=== PATIENT | female | born 1980 | race Caucasian/White ===

== ENCOUNTER 2017-07-13 14:33 | Inpatient (IN) | payer OTHER ==
[2017-07-13 18:07] VITALS: BMI 26.6
--- NOTE | 2017-07-13 20:52 | HP ---
CIWA Score - CIWA Score Nausea/Vomitin-Mild Nausea/No Vomiting Muscle Tremors: 4-Moderate,w/Arms Extend Anxiety: 4-Mod. Anxious/Guarded Agitation: 4-Moderately Restless Paroxysmal Sweats: 1-Minimal Palms Moist Orientation: 0-Oriented Tacttile Disturbances: 0-None Auditory Disturbances: 0-None Visual Disturbances: 0-None Headache: 2-Mild CIWA-Ar Total Score: 16 Admission ROS BHS - HPI Chief Complaint: C/O WITHDRAWAL SX'S FROM BENZO'S. SEEKING DETOX TXMENT Allergies/Adverse Reactions: Allergies Allergy/AdvReac Type Severity Reaction Status Date / Time buspirone [From BuSpar] Allergy Severe Rash Verified 07/13/17 20:05 Penicillins Allergy Severe Rash Verified 07/13/17 20:05 History of Present Illness: 36 Y.O. FEMALE WITH LONG HX/O BENZO DEPENDENCE ADMITTED TO DETOX. CLIENT REPORTS LAST DETOX A LITTLE OVER A MONTH AGO BUT HAS SINCE RELAPSED. SHE WAS REFERRED BY HER MMTP PROGRAM. SHE IS ON METHADONE 100 MG DAILY AT THE [facility] METHADONE PROGRAM/ [facility] TODAY. REPORTS LONGEST CLEAN TIME 14 MONTHS. Exam Limitations: No Limitations - Ebola screening Have you traveled outside of the country in the last 21 days: No Have you had contact with anyone from an Ebola affected area: No Have you been sick,other than usual withdrawal symptoms: No Do you have a fever: No - Review of Systems Constitutional: Chills, Loss of Appetite, Malaise, Night Sweats, Unintentional Wgt. Loss EENT: reports: Nose Congestion Respiratory: reports: No Symptoms reported Cardiac: reports: No Symptoms Reported GI: reports: Poor Appetite, Poor Fluid Intake, Abdominal cramping : reports: No Symptoms Reported Musculoskeletal: reports: No Symptoms Reported Integumentary: reports: No Symptoms Reported Neuro: reports: No Symptoms reported Endocrine: reports: No Symptoms Reported Hematology: reports: No Symptoms Reported Psychiatric: reports: Anxious, Depressed Other Systems: Reviewed and Negative Patient History - Patient Medical History Hx Anemia: No Hx Asthma: No Hx Chronic Obstructive Pulmonary Disease (COPD): No Hx Cancer: No Hx Cardiac Disorders: No Hx Congestive Heart Failure: No Hx Hypertension: No Hx Hypercholesterolemia: No Hx Pacemaker: No HX Cerebrovascular Accident: No Hx Seizures: No Hx Dementia: No Hx Diabetes: No Hx Gastrointestinal Disorders: No Hx Liver Disease: No Hx Genitourinary Disorders: No Hx Sexually Transmitted Disorders: No Hx Renal Disease (ESRD): No Hx Thyroid Disease: No Hx Human Immunodeficiency Virus (HIV): No Hx Hepatitis C: Yes (TX'ED) Hx Depression: Yes Hx Suicide Attempt: No Hx Bipolar Disorder: No Hx Schizophrenia: No Other Medical History: ANXIETY - Patient Surgical History Past Surgical History: No Hx Neurologic Surgery: No Hx Cataract Extraction: No Hx Cardiac Surgery: No Hx Lung Surgery: No Hx Breast Surgery: No Hx Breast Biopsy: No Hx Abdominal Surgery: No Hx Appendectomy: No Hx Cholecystectomy: No Hx Genitourinary Surgery: No Hx Section: No Hx Orthopedic Surgery: No Anesthesia Reaction: No - PPD History Previous Implant?: Yes Documented Results: Negative w/o proof Implanted On Prior R Admission?: No PPD to be Administered?: Yes - Reproductive History Patient is a Female of Child Bearing Age (11 -55 yrs old): Yes Last Menstrual Period: 07/12/17 LMP comment: IRREG Patient : No (NEG UHCG) - Smoking Cessation Smoking history: Current every day smoker Have you smoked in the past 12 months: Yes Aproximately how many cigarettes per day: 20 Cigars Per Day: 0 Hx Chewing Tobacco Use: No Initiated information on smoking cessation: Yes 'Breaking Loose' booklet given: 07/13/17 - Substance & Tx. History Hx Alcohol Use: No Hx Substance Use: Yes Substance Use Type: Cocaine, Opiates, Prescribed (MMTP), Tranquilizers (BENZO) Hx Substance Use Treatment: Yes ([facility]) - Substances Abused Benzodiazepine (Klonopin) Route: Oral Frequency: Daily Amount used: 10mg Age of first use: 28 Date of Last Use: 07/13/17 Cocaine Route: Injection Frequency: Daily Amount used: 2 bags Age of first use: 18 Date of Last Use: 07/13/17 Family Disease History - Family Disease History Family Disease History: Diabetes: Grandparent (HTN), Mother (HTN), Other: Father (RECOVERING ADDICT) Admission Physical Exam BHS - Vital Signs Vital Signs: Vital Signs - 24 hr 07/13/17 18:04 Temperature 98.4 F Pulse Rate 79 Respiratory 18 Rate Blood Pressure 137/72 - Physical General Appearance: Yes: Disheveled, Mild Distress, Anxious HEENTM: Yes: EOMI, Normocephalic, Normal Voice, POONAM, Pharynx Normal, Nasal Congestion Respiratory: Yes: Chest Non-Tender, Lungs Clear, Normal Breath Sounds, No Respiratory Distress, No Accessory Muscle Use Neck: Yes: No masses,lesions,Nodules, Supple, Trachea in good position Breast: Yes: Breast Exam Deferred Cardiology: Yes: Regular Rhythm, Regular Rate, S1, S2 Abdominal: Yes: Normal Bowel Sounds, Non Tender, Flat, Soft Genitourinary: Yes: Within Normal Limits Back: Yes: Normal Inspection Musculoskeletal: Yes: full range of Motion, Gait Steady Extremities: Yes: Normal Range of Motion, Non-Tender Neurological: Yes: publishing director II-XII NML intact, Fully Oriented, Alert, Motor Strength 5/5 Integumentary: Yes: Normal Color, Dry, Warm Lymphatic: Yes: Within Normal Limits - Diagnostic (1) Sedative, hypnotic or anxiolytic dependence with withdrawal, uncomplicated Current Visit: Yes Status: Chronic (2) Cocaine dependence, uncomplicated Current Visit: Yes Status: Chronic (3) Methadone maintenance therapy patient Current Visit: Yes Status: Chronic (4) Nicotine dependence Current Visit: Yes Status: Chronic Qualifiers: Nicotine product type: cigarettes Substance use status: uncomplicated Qualified Code(s): F17.210 - Nicotine dependence, cigarettes, uncomplicated Cleared for Admission [facility] - Detox or Rehab [facility] Level of Care: Medically Managed Detox Regimen/Protocol: Valium Claeared for Rehab Admission: No [facility] Breath Alcohol Content Breath Alcohol Content: 0 Urine Pregancy Test - Result Urine Test Results: Negative- NO Line Present Urine Drug Screen - Results Drug Screen Negative: No Urine Drug Screen Results: MEÑO-Cocaine, OPI-Opiates, BZO-Benzodiazepines, MTD- Methadone
[2017-07-13] MEDS ORDERED: diazePAM 5 MG TABLET PO ONE (21:03)
[2017-07-13] MEDS ORDERED: MAGNESIUM CITRATE 300 ML BOTTLE PO PRN (21:04)
[2017-07-13] MEDS ORDERED: ACETAMINOPHEN 325 MG TABLET (FP) PO PRN (21:04)
[2017-07-13] MEDS ORDERED: LOPERAMIDE HCL 2 MG CAPSULE PO PRN (21:04)
[2017-07-13] MEDS ORDERED: MAG HYDROX/AL HYDROX/SIMETH 30 ML UNIT-DOSE CUP PO PRN (21:04)
[2017-07-13] MEDS ORDERED: guaiFENesin/D-METHORPHAN HB 10 ML UNIT-DOSE CUPS PO PRN (21:04)
[2017-07-13] MEDS ORDERED: MENTHOL/PHENOL 1 EACH UD MM PRN (21:04)
[2017-07-13] MEDS ORDERED: MAGNESIUM HYDROX 2400MG/30ML ORAL SUSPENSION 30 ML CUP PO PRN (21:04)
[2017-07-13] MEDS ORDERED: P-EPHED 60MG/TRIPROLIDI 2.5MG TABLET PO PRN (21:04)
[2017-07-13] MEDS ORDERED: diphenhydrAMINE HCL 25 MG CAPSULE (FP) PO ONE (21:05)
[2017-07-13] MEDS: THIAMINE HCL 100 MG TABLET (FP) PO SCH (22:39)
[2017-07-13] MEDS: diazePAM 5 MG TABLET PO SCH (23:04)
[2017-07-14 00:55] LABS: URINE APPEARANCE SLCLOUDY; URINE BILIRUBIN NEGATIVE (NEGATIVE); URINE BLOOD 1+ (NEGATIVE); URINE COLOR YELLOW; URINE GLUCOSE (UA) NEGATIVE (NEGATIVE); URINE KETONE NEGATIVE (NEGATIVE); URINE LEUK ESTERASE TRACE (NEGATIVE); URINE NITRITE NEGATIVE (NEGATIVE); URINE PROTEIN NEGATIVE (NEGATIVE)
[2017-07-14 01:00] LABS: EPI CELLS FEW /HPF (FEW); URINE MUCUS RARE
[2017-07-14] MEDS: diazePAM 5 MG TABLET PO SCH ×3 (05:50→22:52)
[2017-07-14] MEDS ORDERED: METHADONE HCL 10 MG TABLET PO SCH ×2 (10:15→10:55)
[2017-07-14] MEDS: PRENATAL VITAMINS W/ FOLIC ACID TABLET (FP) PO SCH (10:49)
[2017-07-14] MEDS: diazePAM 5 MG TABLET PO PRN ×3 (10:50→19:00)
[2017-07-14] MEDS ORDERED: METHADONE 80 MG, METHADONE 20 MG PO ONE (11:15)
[2017-07-14] MEDS ORDERED: METHADONE HCL 10 MG TABLET ONE (11:19)
[2017-07-14] MEDS ORDERED: METHADONE HCL 40 MG DISPERSABLE TABLET ONE (11:19)
[2017-07-14] MEDS: NICOTINE POLACRILEX 2 MG GUM BUC PRN ×2 (13:18→19:00)
[2017-07-14] MEDS: NICOTINE 21 MG/24 HOURS TOPICAL PATCH TD SCH (13:33)
--- NOTE | 2017-07-14 16:00 | EKG ---
Test Reason : Blood Pressure : / mmHG Vent. Rate : 054 BPM Atrial Rate : 054 BPM P-R Int : 110 ms QRS Dur : 096 ms QT Int : 466 ms P-R-T Axes : 031 028 022 degrees QTc Int : 441 ms SINUS BRADYCARDIA WITH SHORT WY OTHERWISE NORMAL ECG NO PREVIOUS ECGS AVAILABLE Confirmed by DAIANA ORELLANA, HAROON ([id number]) on 07/14/2017 3:59:34 PM Referred By: Confirmed By:HAROON AHMADI MD
--- NOTE | 2017-07-14 18:57 | CONSULT ---
[facility] Psychiatric Consult - Data Date of interview: 07/14/17 Admission source: [facility] Identifying data: Admission to [facility] for this 36 y/o female seeking detox treatment on for opiod,cocaine and benzodiazepine dependence.Patient is single without children,homeless,unemployed and supported on food stamps. Substance Abuse History: Confirmed by patient in this session.See current [facility] report for details. Smoking history: Current every day smoker. Have you smoked in the past 12 months: Yes. Aproximately how many cigarettes per day: 20. Cigars Per Day: 0. Hx Chewing Tobacco Use: No. Initiated information on smoking cessation: Yes. 'Breaking Loose' booklet given: 07/13/17. - Substance & Tx. History. Hx Alcohol Use: No. Hx Substance Use: Yes. Substance Use Type : Cocaine, Opiates, Prescribed (MMTP), Tranquilizers (BENZO). Hx Substance Use Treatment: Yes ([facility]). - Substances Abused. Benzodiazepine ( Klonopin). Route: Oral. Frequency: Daily. Amount used: 10mg. Age of first use: 28. Date of Last Use: 07/13/17. Cocaine. Route: Injection. Frequency : Daily. Amount used: 2 bags. Age of first use: 18. Date of Last Use: Medical History: Hepatitis C. Psychiatric History: No reported history of psychiatric hospitalizations.Diagnosed with MDD and Anxiety Disorder.No regular OPD follow up (patient gets scripts at discharge from various detox/ rehab facilities) .Prescribed zoloft 100 mg/day + benadryl for insomnia.Ms Antoni bustamante history of suicide attempts.Currently on methadone maintenance (100 mg/day) at the [facility]. Physical/Sexual Abuse/Trauma History: Patient denies. Additional Comment: Urine Drug Screen Results: MEÑO-Cocaine, OPI-Opiates, BZO- Benzodiazepines, MTD-Methadone.Noted. Mental Status Exam - Mental Status Exam Alert and Oriented to: Time, Place, Person Cognitive Function: Good Patient Appearance: Well Groomed Mood: Nervous, Anxious, Hopeful Affect: Mood Congruent Patient Behavior: Fatigued, Appropriate, Cooperative Speech Pattern: Clear, Appropriate Voice Loudness: Normal Thought Process: Intact, Goal Oriented Thought Disorder: Not Present Hallucinations: Denies Suicidal Ideation: Denies Homicidal Ideation: Denies Insight/Judgement: Poor Sleep: Poorly, Difficulty falling asleep Appetite: Good Muscle strength/Tone: Normal Gait/Station: Normal Psychiatric Findings - Problem List ([place] 1, 2,3) (1) Opioid dependence on agonist therapy Current Visit: Yes Status: Acute (2) Cocaine dependence, uncomplicated Current Visit: Yes Status: Acute (3) Sedative, hypnotic or anxiolytic dependence with withdrawal, uncomplicated Current Visit: Yes Status: Acute (4) Nicotine dependence Current Visit: Yes Status: Acute Qualifiers: Nicotine product type: cigarettes Substance use status: uncomplicated Qualified Code(s): F17.210 - Nicotine dependence, cigarettes, uncomplicated (5) Substance induced mood disorder Current Visit: Yes Status: Acute (6) Insomnia Current Visit: Yes Status: Acute - Initial Treatment Plan Initial Treatment Plan: Psychoeducation.Sleep hygiene.Detoxification in progress.Medications : zoloft 100 mg po daily + ambien 5 mg po hs.Side effects/ benefits of both drugs are discussed with patient.Ms Corrales consented (verbally ) to this careplan.Observation.
--- NOTE | 2017-07-14 19:53 | PN ---
S CIWA - CIWA Score Nausea/Vomitin Muscle Tremors: 3 Anxiety: 3 Agitation: 3 Paroxysmal Sweats: 1-Minimal Palms Moist Orientation: 0-Oriented Tacttile Disturbances: 0-None Auditory Disturbances: 0-None Visual Disturbances: 0-None Headache: 0-None Present CIWA-Ar Total Score: 13 S Progress Note (SOAP) Subjective: Shakes nausea Objective: A & O x 3, Ambulating steadily on unit Anxious Vital Signs Temperature 98.1 F 07/14/17 18:40 Pulse Rate 59 L 07/14/17 18:40 Respiratory Rate 17 07/14/17 18:40 Blood Pressure 113/61 07/14/17 18:40 O2 Sat by Pulse Oximetry (%) Laboratory Last Values Urine Color Yellow 07/13/17 22:59 Urine Appearance Slcloudy 07/13/17 22:59 Urine pH 5.0 (5.0-8.0) 07/13/17 22:59 Ur Specific [place] 1.018 (1.001-1.035) 07/13/17 22:59 Urine Protein Negative (NEGATIVE) 07/13/17 22:59 Urine Glucose (UA) Negative (NEGATIVE) 07/13/17 22:59 Urine Ketones Negative (NEGATIVE) 07/13/17 22:59 Urine Blood 1+ (NEGATIVE) H 07/13/17 22:59 Urine Nitrite Negative (NEGATIVE) 07/13/17 22:59 Urine Bilirubin Negative (NEGATIVE) 07/13/17 22:59 Urine Urobilinogen 2.0 mg/dL (0.2-1.0) H 07/13/17 22:59 Ur Leukocyte Esterase Trace (NEGATIVE) 07/13/17 22:59 Urine WBC (Auto) 1 /hpf (3-5) 07/13/17 22:59 Urine RBC (Auto) 6 /hpf (0-3) 07/13/17 22:59 Ur Epithelial Cells Few /HPF (FEW) 07/13/17 22:59 Urine Mucus Rare 07/13/17 22:59 labs noted Assessment: 07/14/17 19:52 withdrawal sx Plan: continue detox
[2017-07-14] MEDS: THIAMINE HCL 100 MG TABLET (FP) PO SCH (22:52)
[2017-07-14] MEDS: ZOLPIDEM TARTRATE 5 MG TABLET PO PRN (22:52)
[2017-07-15] MEDS ORDERED: METHADONE HCL 10 MG TABLET ONE (05:25)
[2017-07-15] MEDS ORDERED: METHADONE HCL 40 MG DISPERSABLE TABLET ONE (05:25)
[2017-07-15] MEDS: METHADONE 80 MG, METHADONE 20 MG PO SCH (06:24)
[2017-07-15] MEDS: diazePAM 5 MG TABLET PO PRN ×3 (07:57→16:54)
[2017-07-15] MEDS: NICOTINE POLACRILEX 2 MG GUM BUC PRN ×3 (07:58→15:04)
[2017-07-15 10:17] LABS: HEMOGLOBIN 12.2 GM/dL (10.7-15.3); MCH 26.6 pg (25.7-33.7); MEAN CELL VOLUME 82.9 fl (80-96); MEAN PLT VOLUME 8.8 fl (7.5-11.1); PLATELET COUNT 163 K/MM3 (134-434); RBC 4.58 M/mm3 (3.60-5.2); RDW 15.4 % (11.6-15.6); WHITE BLOOD COUNT 5.2 K/mm3 (4.0-10.0)
[2017-07-15 10:22] LABS: ALBUMIN 3.4 g/dl (3.4-5.0); ANION GAP 4 (8-16); BLOOD UREA NITROGEN 9 mg/dL (7-18); CALCIUM 8.4 mg/dL (8.5-10.1); CHLORIDE 105 mmol/L (98-107); CO2 31 mmol/L (21-32); GLUCOSE,RANDOM 85 mg/dL (74-106); POTASSIUM 4.3 mmol/L (3.5-5.1); SGOT/AST 21 U/L (15-37); SGPT/ALT 23 U/L (12-78); SODIUM 140 mmol/L (136-145)
[2017-07-15 10:25] LABS: ALK PHOS 71 U/L (45-117); BILIRUBIN,TOTAL 0.5 mg/dL (0.2-1.0); TOT PROT 6.3 g/dl (6.4-8.2)
[2017-07-15] MEDS: PRENATAL VITAMINS W/ FOLIC ACID TABLET (FP) PO SCH (10:45)
[2017-07-15] MEDS: diazePAM 5 MG TABLET PO SCH ×2 (10:45→22:46)
[2017-07-15] MEDS: SERTRALINE HCL 50 MG TABLET (FP) PO SCH (10:45)
[2017-07-15] MEDS: NICOTINE 21 MG/24 HOURS TOPICAL PATCH TD SCH (10:46)
--- NOTE | 2017-07-15 11:58 | PN ---
[facility] CIWA - CIWA Score Nausea/Vomitin-No Nausea/No Vomiting Muscle Tremors: 3 Anxiety: 3 Agitation: 3 Paroxysmal Sweats: 1-Minimal Palms Moist Orientation: 0-Oriented Tacttile Disturbances: 0-None Auditory Disturbances: 0-None Visual Disturbances: 0-None Headache: 0-None Present CIWA-Ar Total Score: 10 S Progress Note (SOAP) Subjective: sweat tremor anxiety Objective: 07/15/17 11:57 Vital Signs Temperature 98.1 F 07/15/17 10:21 Pulse Rate 49 L 07/15/17 10:21 Respiratory Rate 20 07/15/17 10:21 Blood Pressure 119/68 07/15/17 10:21 O2 Sat by Pulse Oximetry (%) Laboratory Last Values WBC 5.2 K/mm3 (4.0-10.0) 07/15/17 08:00 RBC 4.58 M/mm3 (3.60-5.2) 07/15/17 08:00 Hgb 12.2 GM/dL (10.7-15.3) 07/15/17 08:00 Hct 38.0 % (32.4-45.2) 07/15/17 08:00 MCV 82.9 fl (80-96) 07/15/17 08:00 MCH 26.6 pg (25.7-33.7) 07/15/17 08:00 MCHC 32.0 g/dl (32.0-36.0) 07/15/17 08:00 RDW 15.4 % (11.6-15.6) 07/15/17 08:00 Plt Count 163 K/MM3 (134-434) 07/15/17 08:00 MPV 8.8 fl (7.5-11.1) 07/15/17 08:00 Sodium 140 mmol/L (136-145) 07/15/17 08:00 Potassium 4.3 mmol/L (3.5-5.1) 07/15/17 08:00 Chloride 105 mmol/L (98-107) 07/15/17 08:00 Carbon Dioxide 31 mmol/L (21-32) 07/15/17 08:00 Anion Gap 4 (8-16) L 07/15/17 08:00 BUN 9 mg/dL (7-18) 07/15/17 08:00 Creatinine 1.0 mg/dL (0.55-1.02) 07/15/17 08:00 Creat Clearance w eGFR > 60 (>60) 07/15/17 08:00 Random Glucose 85 mg/dL (74-106) 07/15/17 08:00 Calcium 8.4 mg/dL (8.5-10.1) L 07/15/17 08:00 Total Bilirubin 0.5 mg/dL (0.2-1.0) 07/15/17 08:00 AST 21 U/L (15-37) 07/15/17 08:00 ALT 23 U/L (12-78) 07/15/17 08:00 Alkaline Phosphatase 71 U/L (45-117) 07/15/17 08:00 Total Protein 6.3 g/dl (6.4-8.2) L 07/15/17 08:00 Albumin 3.4 g/dl (3.4-5.0) 07/15/17 08:00 Urine Color Yellow 07/13/17 22:59 Urine Appearance Slcloudy 07/13/17 22:59 Urine pH 5.0 (5.0-8.0) 07/13/17 22:59 Ur Specific [place] 1.018 (1.001-1.035) 07/13/17 22:59 Urine Protein Negative (NEGATIVE) 07/13/17 22:59 Urine Glucose (UA) Negative (NEGATIVE) 07/13/17 22:59 Urine Ketones Negative (NEGATIVE) 07/13/17 22:59 Urine Blood 1+ (NEGATIVE) H 07/13/17 22:59 Urine Nitrite Negative (NEGATIVE) 07/13/17 22:59 Urine Bilirubin Negative (NEGATIVE) 07/13/17 22:59 Urine Urobilinogen 2.0 mg/dL (0.2-1.0) H 07/13/17 22:59 Ur Leukocyte Esterase Trace (NEGATIVE) 07/13/17 22:59 Urine WBC (Auto) 1 /hpf (3-5) 07/13/17 22:59 Urine RBC (Auto) 6 /hpf (0-3) 07/13/17 22:59 Ur Epithelial Cells Few /HPF (FEW) 07/13/17 22:59 Urine Mucus Rare 07/13/17 22:59 lab noted Assessment: 07/15/17 11:57 withdrawal sx Plan: continue detox
[2017-07-15] MEDS: IBUPROFEN 400 MG TABLET (FP) PO PRN (12:54)
[2017-07-15] MEDS ORDERED: SENNOSIDES 8.6MG TABLET (FP) PO SCH (13:00)
[2017-07-15] MEDS ORDERED: BISACODYL 5 MG TABLET.DR (FP) PO SCH (22:00)
[2017-07-15] MEDS: ZOLPIDEM TARTRATE 5 MG TABLET PO PRN (22:45)
[2017-07-15] MEDS: THIAMINE HCL 100 MG TABLET (FP) PO SCH (22:45)
[2017-07-16] MEDS ORDERED: diphenhydrAMINE HCL 25 MG CAPSULE (FP) PO ONE (01:08)
[2017-07-16] MEDS: diazePAM 5 MG TABLET PO PRN ×4 (04:16→17:56)
[2017-07-16] MEDS ORDERED: METHADONE HCL 40 MG DISPERSABLE TABLET ONE (04:46)
[2017-07-16] MEDS ORDERED: METHADONE HCL 10 MG TABLET ONE (04:47)
[2017-07-16] MEDS: METHADONE 80 MG, METHADONE 20 MG PO SCH (05:30)
[2017-07-16] MEDS: NICOTINE POLACRILEX 2 MG GUM BUC PRN ×4 (08:40→17:56)
--- NOTE | 2017-07-16 08:54 | PN ---
BHS Progress Note (SOAP) Subjective: mild alcohol withdrawal sx mild sweat less anxiousness no tremor Objective: 07/16/17 08:54 Vital Signs Temperature 97.7 F 07/16/17 06:38 Pulse Rate 50 L 07/16/17 06:38 Respiratory Rate 18 02 06:38 Blood Pressure 116/76 07/16/17 06:38 O2 Sat by Pulse Oximetry (%) Laboratory Last Values WBC 5.2 K/mm3 (4.0-10.0) 07/15/17 08:00 RBC 4.58 M/mm3 (3.60-5.2) 07/15/17 08:00 Hgb 12.2 GM/dL (10.7-15.3) 07/15/17 08:00 Hct 38.0 % (32.4-45.2) 07/15/17 08:00 MCV 82.9 fl (80-96) 07/15/17 08:00 MCH 26.6 pg (25.7-33.7) 07/15/17 08:00 MCHC 32.0 g/dl (32.0-36.0) 07/15/17 08:00 RDW 15.4 % (11.6-15.6) 07/15/17 08:00 Plt Count 163 K/MM3 (134-434) 07/15/17 08:00 MPV 8.8 fl (7.5-11.1) 07/15/17 08:00 Sodium 140 mmol/L (136-145) 07/15/17 08:00 Potassium 4.3 mmol/L (3.5-5.1) 07/15/17 08:00 Chloride 105 mmol/L (98-107) 07/15/17 08:00 Carbon Dioxide 31 mmol/L (21-32) 07/15/17 08:00 Anion Gap 4 (8-16) L 07/15/17 08:00 BUN 9 mg/dL (7-18) 07/15/17 08:00 Creatinine 1.0 mg/dL (0.55-1.02) 07/15/17 08:00 Creat Clearance w eGFR > 60 (>60) 07/15/17 08:00 Random Glucose 85 mg/dL (74-106) 07/15/17 08:00 Calcium 8.4 mg/dL (8.5-10.1) L 07/15/17 08:00 Total Bilirubin 0.5 mg/dL (0.2-1.0) 07/15/17 08:00 AST 21 U/L (15-37) 07/15/17 08:00 ALT 23 U/L (12-78) 07/15/17 08:00 Alkaline Phosphatase 71 U/L (45-117) 07/15/17 08:00 Total Protein 6.3 g/dl (6.4-8.2) L 07/15/17 08:00 Albumin 3.4 g/dl (3.4-5.0) 07/15/17 08:00 Urine Color Yellow 07/13/17 22:59 Urine Appearance Slcloudy 07/13/17 22:59 Urine pH 5.0 (5.0-8.0) 07/13/17 22:59 Ur Specific [place] 1.018 (1.001-1.035) 07/13/17 22:59 Urine Protein Negative (NEGATIVE) 07/13/17 22:59 Urine Glucose (UA) Negative (NEGATIVE) 07/13/17 22:59 Urine Ketones Negative (NEGATIVE) 07/13/17 22:59 Urine Blood 1+ (NEGATIVE) H 07/13/17 22:59 Urine Nitrite Negative (NEGATIVE) 07/13/17 22:59 Urine Bilirubin Negative (NEGATIVE) 07/13/17 22:59 Urine Urobilinogen 2.0 mg/dL (0.2-1.0) H 07/13/17 22:59 Ur Leukocyte Esterase Trace (NEGATIVE) 07/13/17 22:59 Urine WBC (Auto) 1 /hpf (3-5) 07/13/17 22:59 Urine RBC (Auto) 6 /hpf (0-3) 07/13/17 22:59 Ur Epithelial Cells Few /HPF (FEW) 07/13/17 22:59 Urine Mucus Rare 07/13/17 22:59 RPR Titer Nonreactive (NONREACTIVE) 07/15/17 08:00 lab noted Assessment: 07/16/17 08:57 mild withdrawal sx Plan: medically supervised detox
[2017-07-16] MEDS: SERTRALINE HCL 50 MG TABLET (FP) PO SCH (10:57)
[2017-07-16] MEDS: PRENATAL VITAMINS W/ FOLIC ACID TABLET (FP) PO SCH (10:57)
[2017-07-16] MEDS: diazePAM 5 MG TABLET PO SCH ×2 (10:57→22:28)
[2017-07-16] MEDS: NICOTINE 21 MG/24 HOURS TOPICAL PATCH TD SCH (10:57)
[2017-07-16] MEDS: THIAMINE HCL 100 MG TABLET (FP) PO SCH (22:28)
[2017-07-16] MEDS: ZOLPIDEM TARTRATE 5 MG TABLET PO PRN (22:28)
[2017-07-17] MEDS ORDERED: METHADONE HCL 40 MG DISPERSABLE TABLET ONE (03:54)
[2017-07-17] MEDS ORDERED: METHADONE HCL 10 MG TABLET ONE (03:54)
[2017-07-17] MEDS: METHADONE 80 MG, METHADONE 20 MG PO SCH (06:06)
[2017-07-17] MEDS: NICOTINE POLACRILEX 2 MG GUM BUC PRN ×3 (06:13→12:36)
[2017-07-17] MEDS: IBUPROFEN 400 MG TABLET (FP) PO PRN (06:13)
--- NOTE | 2017-07-17 08:43 | DS ---
[facility] Detox Discharge Summary Admission Date: 07/13/17 Discharge Date: 07/17/17 - History Present History: Sedative Dependence - Physical Exam Results Vital Signs: Vital Signs Temperature 97.3 F L 07/17/17 06:33 Pulse Rate 57 L 07/17/17 06:33 Respiratory Rate 16 07/17/17 06:33 Blood Pressure 136/87 07/17/17 06:33 O2 Sat by Pulse Oximetry (%) Pertinent Admission Physical Exam Findings: withdrawal sx Vital Signs Temperature 97.3 F L 07/17/17 06:33 Pulse Rate 57 L 07/17/17 06:33 Respiratory Rate 16 07/17/17 06:33 Blood Pressure 136/87 07/17/17 06:33 O2 Sat by Pulse Oximetry (%) Laboratory Last Values WBC 5.2 K/mm3 (4.0-10.0) 07/15/17 08:00 RBC 4.58 M/mm3 (3.60-5.2) 07/15/17 08:00 Hgb 12.2 GM/dL (10.7-15.3) 07/15/17 08:00 Hct 38.0 % (32.4-45.2) 07/15/17 08:00 MCV 82.9 fl (80-96) 07/15/17 08:00 MCH 26.6 pg (25.7-33.7) 07/15/17 08:00 MCHC 32.0 g/dl (32.0-36.0) 07/15/17 08:00 RDW 15.4 % (11.6-15.6) 07/15/17 08:00 Plt Count 163 K/MM3 (134-434) 07/15/17 08:00 MPV 8.8 fl (7.5-11.1) 07/15/17 08:00 Sodium 140 mmol/L (136-145) 07/15/17 08:00 Potassium 4.3 mmol/L (3.5-5.1) 07/15/17 08:00 Chloride 105 mmol/L (98-107) 07/15/17 08:00 Carbon Dioxide 31 mmol/L (21-32) 07/15/17 08:00 Anion Gap 4 (8-16) L 07/15/17 08:00 BUN 9 mg/dL (7-18) 07/15/17 08:00 Creatinine 1.0 mg/dL (0.55-1.02) 07/15/17 08:00 Creat Clearance w eGFR > 60 (>60) 07/15/17 08:00 Random Glucose 85 mg/dL (74-106) 07/15/17 08:00 Calcium 8.4 mg/dL (8.5-10.1) L 07/15/17 08:00 Total Bilirubin 0.5 mg/dL (0.2-1.0) 07/15/17 08:00 AST 21 U/L (15-37) 07/15/17 08:00 ALT 23 U/L (12-78) 07/15/17 08:00 Alkaline Phosphatase 71 U/L (45-117) 07/15/17 08:00 Total Protein 6.3 g/dl (6.4-8.2) L 07/15/17 08:00 Albumin 3.4 g/dl (3.4-5.0) 07/15/17 08:00 Urine Color Yellow 07/13/17 22:59 Urine Appearance Slcloudy 07/13/17 22:59 Urine pH 5.0 (5.0-8.0) 07/13/17 22:59 Ur Specific [place] 1.018 (1.001-1.035) 07/13/17 22:59 Urine Protein Negative (NEGATIVE) 07/13/17 22:59 Urine Glucose (UA) Negative (NEGATIVE) 07/13/17 22:59 Urine Ketones Negative (NEGATIVE) 07/13/17 22:59 Urine Blood 1+ (NEGATIVE) H 07/13/17 22:59 Urine Nitrite Negative (NEGATIVE) 07/13/17 22:59 Urine Bilirubin Negative (NEGATIVE) 07/13/17 22:59 Urine Urobilinogen 2.0 mg/dL (0.2-1.0) H 07/13/17 22:59 Ur Leukocyte Esterase Trace (NEGATIVE) 07/13/17 22:59 Urine WBC (Auto) 1 /hpf (3-5) 07/13/17 22:59 Urine RBC (Auto) 6 /hpf (0-3) 07/13/17 22:59 Ur Epithelial Cells Few /HPF (FEW) 07/13/17 22:59 Urine Mucus Rare 07/13/17 22:59 RPR Titer Nonreactive (NONREACTIVE) 07/15/17 08:00 lab noted - Treatment Hospital Course: Detox Protocol Followed, Detoxed Safely, Responded well, Discharged Condition Good, Rehab Referral Accepted Patient has Accepted a Rehab Referral to: [facility] - Medication Discharge Medications: Ambulatory Orders Sertraline HCl [Zoloft -] 100 mg PO DAILY 07/13/17 - AMA Did Patient Leave Against Medical Advice: No
[2017-07-17] MEDS: PRENATAL VITAMINS W/ FOLIC ACID TABLET (FP) PO SCH (09:47)
[2017-07-17] MEDS: SERTRALINE HCL 50 MG TABLET (FP) PO SCH (09:47)
[2017-07-17] MEDS: NICOTINE 21 MG/24 HOURS TOPICAL PATCH TD SCH (09:48)
[2017-07-17] MEDS ORDERED: diazePAM 5 MG TABLET PO SCH (10:00)
[2017-07-17 10:45] VITALS: BP 127/60; PULSE 50; TEMP 97.7
== END 2017-07-17 14:04 | disposition other institution (70) | DRG 773 ==
LOC: YASAS 14:33 → Y6N 18:43
PROVIDERS: ADMIT Internal Medicine; ATTEND Internal Medicine
PROC: HZ2ZZZZ Detoxification Services for Substance Abuse Treatment (ICD-10-PCS; principal; 2017-07-13)
DX: F13.230 Sedative, hypnotic or anxiolytic dependence with withdrawal, uncomplicated (principal); F11.20 Opioid dependence, uncomplicated; F14.20 Cocaine dependence, uncomplicated; F17.210 Nicotine dependence, cigarettes, uncomplicated; F19.24 Other psychoactive substance dependence with psychoactive substance-induced mood disorder; G47.00 Insomnia, unspecified; Z88.0 Allergy status to penicillin
CPT/HCPCS: 36415; 71046-TC-FY; 80053; 81003; 81015; 85027; 86593; 93005; 93010

== ENCOUNTER 2017-07-17 14:09 | Inpatient (IN) | payer OTHER ==
[2017-07-17] MEDS ORDERED: ACETAMINOPHEN 325 MG TABLET (FP) PO PRN (15:20)
[2017-07-17] MEDS ORDERED: MAGNESIUM CITRATE 300 ML BOTTLE PO PRN (15:20)
[2017-07-17] MEDS ORDERED: LOPERAMIDE HCL 2 MG CAPSULE PO PRN (15:20)
[2017-07-17] MEDS ORDERED: guaiFENesin/D-METHORPHAN HB 10 ML UNIT-DOSE CUPS PO PRN (15:20)
[2017-07-17] MEDS ORDERED: MENTHOL/PHENOL 1 EACH UD MM PRN (15:20)
[2017-07-17] MEDS ORDERED: MAG HYDROX/AL HYDROX/SIMETH 30 ML UNIT-DOSE CUP PO PRN (15:20)
[2017-07-17] MEDS ORDERED: P-EPHED 60MG/TRIPROLIDI 2.5MG TABLET PO PRN (15:20)
[2017-07-17] MEDS: THIAMINE HCL 100 MG TABLET (FP) PO SCH (21:33)
[2017-07-17] MEDS: IBUPROFEN 400 MG TABLET (FP) PO PRN (21:33)
[2017-07-17] MEDS: hydrOXYzine PAMOATE 50 MG CAPSULE (FP) PO PRN (21:33)
[2017-07-17] MEDS: NICOTINE POLACRILEX 4 MG GUM BUC PRN (21:34)
[2017-07-18] MEDS ORDERED: METHADONE HCL 10 MG TABLET ONE (04:37)
[2017-07-18] MEDS ORDERED: METHADONE HCL 40 MG DISPERSABLE TABLET ONE (04:37)
[2017-07-18] MEDS ORDERED: METHADONE HCL 40 MG DISPERSABLE TABLET PO SCH (06:00)
[2017-07-18] MEDS: METHADONE 80 MG, METHADONE 20 MG PO SCH (06:01)
[2017-07-18] MEDS: NICOTINE POLACRILEX 4 MG GUM BUC PRN ×4 (08:45→21:52)
[2017-07-18] MEDS: PRENATAL VITAMINS W/ FOLIC ACID TABLET (FP) PO SCH (09:56)
[2017-07-18] MEDS: NICOTINE 21 MG/24 HOURS TOPICAL PATCH TD SCH (09:56)
[2017-07-18] MEDS: SERTRALINE HCL 50 MG TABLET (FP) PO SCH (09:57)
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
[2017-07-18] MEDS: IBUPROFEN 400 MG TABLET (FP) PO PRN (15:45)
[2017-07-18] MEDS: THIAMINE HCL 100 MG TABLET (FP) PO SCH (21:25)
[2017-07-18] MEDS: hydrOXYzine PAMOATE 50 MG CAPSULE (FP) PO PRN (21:25)
[2017-07-19] MEDS ORDERED: METHADONE HCL 10 MG TABLET ONE (04:41)
[2017-07-19] MEDS ORDERED: METHADONE HCL 40 MG DISPERSABLE TABLET ONE (04:41)
[2017-07-19] MEDS: METHADONE 80 MG, METHADONE 20 MG PO SCH (05:56)
[2017-07-19] MEDS: NICOTINE POLACRILEX 4 MG GUM BUC PRN ×4 (05:57→20:35)
[2017-07-19] MEDS: SERTRALINE HCL 50 MG TABLET (FP) PO SCH (10:04)
[2017-07-19] MEDS: NICOTINE 21 MG/24 HOURS TOPICAL PATCH TD SCH (10:05)
[2017-07-19] MEDS: PRENATAL VITAMINS W/ FOLIC ACID TABLET (FP) PO SCH (10:05)
--- NOTE | 2017-07-19 12:18 | PN ---
S Progress Note (SOAP) Subjective: body aches and pains from detox, requesting flexeril Objective: 07/19/17 12:17 Vital Signs - 24 hr 07/19/17 06:52 Temperature 98.6 F Pulse Rate 50 L Respiratory 16 Rate Blood Pressure 121/75 labs reveiwed Assessment: 07/19/17 12:17 body aches and pains - withdrawwal sx , start fleseriland naprosyn for pain around the clock with protonix.
[2017-07-19] MEDS: NAPROXEN 500 MG TABLET (FP) PO SCH ×2 (13:10→22:03)
[2017-07-19] MEDS: CYCLOBENZAPRINE HCL 10 MG TABLET (FP) PO SCH ×2 (13:10→22:03)
[2017-07-19] MEDS: PANTOPRAZOLE 40 MG TABLET (FP) PO SCH (13:10)
[2017-07-19] MEDS: hydrOXYzine PAMOATE 50 MG CAPSULE (FP) PO PRN (22:04)
[2017-07-19] MEDS: THIAMINE HCL 100 MG TABLET (FP) PO SCH (22:04)
[2017-07-19] MEDS: SUVOREXANT 5 MG TABLET PO PRN (22:04)
[2017-07-20] MEDS ORDERED: METHADONE HCL 40 MG DISPERSABLE TABLET ONE (04:15)
[2017-07-20] MEDS ORDERED: METHADONE HCL 10 MG TABLET ONE (04:15)
[2017-07-20] MEDS: METHADONE 80 MG, METHADONE 20 MG PO SCH (05:47)
[2017-07-20] MEDS: CYCLOBENZAPRINE HCL 10 MG TABLET (FP) PO SCH ×3 (05:47→21:44)
[2017-07-20] MEDS: NICOTINE POLACRILEX 4 MG GUM BUC PRN ×4 (09:06→21:45)
[2017-07-20] MEDS: NAPROXEN 500 MG TABLET (FP) PO SCH ×2 (10:24→21:44)
[2017-07-20] MEDS: PRENATAL VITAMINS W/ FOLIC ACID TABLET (FP) PO SCH (10:24)
[2017-07-20] MEDS: NICOTINE 21 MG/24 HOURS TOPICAL PATCH TD SCH (10:24)
[2017-07-20] MEDS: PANTOPRAZOLE 40 MG TABLET (FP) PO SCH (10:24)
[2017-07-20] MEDS: SERTRALINE HCL 50 MG TABLET (FP) PO SCH (10:24)
[2017-07-20] MEDS: THIAMINE HCL 100 MG TABLET (FP) PO SCH (21:44)
[2017-07-20] MEDS: hydrOXYzine PAMOATE 50 MG CAPSULE (FP) PO PRN (21:44)
[2017-07-21] MEDS ORDERED: METHADONE HCL 40 MG DISPERSABLE TABLET ONE (04:15)
[2017-07-21] MEDS ORDERED: METHADONE HCL 10 MG TABLET ONE (04:15)
[2017-07-21] MEDS: METHADONE 80 MG, METHADONE 20 MG PO SCH (06:13)
[2017-07-21] MEDS: IBUPROFEN 400 MG TABLET (FP) PO PRN (06:13)
[2017-07-21] MEDS: CYCLOBENZAPRINE HCL 10 MG TABLET (FP) PO SCH ×3 (06:14→21:22)
[2017-07-21] MEDS: NICOTINE 21 MG/24 HOURS TOPICAL PATCH TD SCH (10:03)
[2017-07-21] MEDS: PANTOPRAZOLE 40 MG TABLET (FP) PO SCH (10:03)
[2017-07-21] MEDS: NAPROXEN 500 MG TABLET (FP) PO SCH ×2 (10:03→21:22)
[2017-07-21] MEDS: SERTRALINE HCL 50 MG TABLET (FP) PO SCH (10:03)
[2017-07-21] MEDS: PRENATAL VITAMINS W/ FOLIC ACID TABLET (FP) PO SCH (10:03)
[2017-07-21] MEDS: NICOTINE POLACRILEX 4 MG GUM BUC PRN ×4 (10:05→22:50)
[2017-07-21] MEDS: SUVOREXANT 5 MG TABLET PO PRN (21:22)
[2017-07-21] MEDS: THIAMINE HCL 100 MG TABLET (FP) PO SCH (21:22)
[2017-07-21] MEDS: hydrOXYzine PAMOATE 50 MG CAPSULE (FP) PO PRN (21:22)
[2017-07-22] MEDS ORDERED: METHADONE HCL 40 MG DISPERSABLE TABLET ONE (04:15)
[2017-07-22] MEDS ORDERED: METHADONE HCL 10 MG TABLET ONE (04:15)
[2017-07-22] MEDS: METHADONE 80 MG, METHADONE 20 MG PO SCH (06:03)
[2017-07-22] MEDS: CYCLOBENZAPRINE HCL 10 MG TABLET (FP) PO SCH ×3 (06:03→21:45)
[2017-07-22] MEDS: PRENATAL VITAMINS W/ FOLIC ACID TABLET (FP) PO SCH (10:01)
[2017-07-22] MEDS: PANTOPRAZOLE 40 MG TABLET (FP) PO SCH (10:01)
[2017-07-22] MEDS: NAPROXEN 500 MG TABLET (FP) PO SCH ×2 (10:01→21:45)
[2017-07-22] MEDS: SERTRALINE HCL 50 MG TABLET (FP) PO SCH (10:01)
[2017-07-22] MEDS: NICOTINE 21 MG/24 HOURS TOPICAL PATCH TD SCH (10:01)
[2017-07-22] MEDS: NICOTINE POLACRILEX 4 MG GUM BUC PRN ×3 (10:02→21:46)
[2017-07-22] MEDS: THIAMINE HCL 100 MG TABLET (FP) PO SCH (21:45)
[2017-07-22] MEDS: hydrOXYzine PAMOATE 50 MG CAPSULE (FP) PO PRN (21:46)
[2017-07-23] MEDS ORDERED: METHADONE HCL 10 MG TABLET ONE (04:16)
[2017-07-23] MEDS ORDERED: METHADONE HCL 40 MG DISPERSABLE TABLET ONE (04:16)
[2017-07-23] MEDS: METHADONE 80 MG, METHADONE 20 MG PO SCH (06:08)
[2017-07-23] MEDS: CYCLOBENZAPRINE HCL 10 MG TABLET (FP) PO SCH ×3 (06:08→21:15)
[2017-07-23] MEDS: PRENATAL VITAMINS W/ FOLIC ACID TABLET (FP) PO SCH (09:08)
[2017-07-23] MEDS: NAPROXEN 500 MG TABLET (FP) PO SCH ×2 (09:08→21:15)
[2017-07-23] MEDS: NICOTINE 21 MG/24 HOURS TOPICAL PATCH TD SCH (09:09)
[2017-07-23] MEDS: PANTOPRAZOLE 40 MG TABLET (FP) PO SCH (09:09)
[2017-07-23] MEDS: SERTRALINE HCL 50 MG TABLET (FP) PO SCH (09:09)
[2017-07-23] MEDS: THIAMINE HCL 100 MG TABLET (FP) PO SCH (21:15)
[2017-07-23] MEDS: hydrOXYzine PAMOATE 50 MG CAPSULE (FP) PO PRN (21:15)
[2017-07-24] MEDS ORDERED: METHADONE HCL 40 MG DISPERSABLE TABLET ONE (04:24)
[2017-07-24] MEDS ORDERED: METHADONE HCL 10 MG TABLET ONE (04:24)
[2017-07-24] MEDS: METHADONE 80 MG, METHADONE 20 MG PO SCH (06:17)
[2017-07-24] MEDS: CYCLOBENZAPRINE HCL 10 MG TABLET (FP) PO SCH ×3 (06:17→21:12)
[2017-07-24] MEDS: NAPROXEN 500 MG TABLET (FP) PO SCH ×2 (09:57→21:12)
[2017-07-24] MEDS: PRENATAL VITAMINS W/ FOLIC ACID TABLET (FP) PO SCH (09:57)
[2017-07-24] MEDS: PANTOPRAZOLE 40 MG TABLET (FP) PO SCH (09:57)
[2017-07-24] MEDS: NICOTINE 21 MG/24 HOURS TOPICAL PATCH TD SCH (09:57)
[2017-07-24] MEDS: SERTRALINE HCL 50 MG TABLET (FP) PO SCH (09:57)
[2017-07-24] MEDS: NICOTINE POLACRILEX 4 MG GUM BUC PRN ×3 (09:58→19:22)
--- NOTE | 2017-07-24 11:48 | PN ---
[facility] Progress Note (SOAP) Subjective: I am having difficulty with going to the bathroom I need colace Objective: 07/24/17 11:44 Vital Signs Temperature 98.2 F 07/24/17 06:45 Pulse Rate 62 07/24/17 06:45 Respiratory Rate 18 07/24/17 06:45 Blood Pressure 122/74 07/24/17 06:45 O2 Sat by Pulse Oximetry (%) [id number] ambulating no acute distress Assessment: 07/24/17 11:44 abdomen assessed, belly soft, +BS all four quadrants. Plan: colace 100mg TID senna tabs qhs increase fluids, water pitcher ordered.
[2017-07-24] MEDS: DOCUSATE SODIUM 100 MG CAPSULE (FP) PO SCH ×2 (13:22→21:12)
[2017-07-24] MEDS: THIAMINE HCL 100 MG TABLET (FP) PO SCH (21:12)
[2017-07-24] MEDS: SENNOSIDES 8.6MG TABLET (FP) PO SCH (21:13)
[2017-07-24] MEDS: hydrOXYzine PAMOATE 50 MG CAPSULE (FP) PO PRN (21:14)
[2017-07-25] MEDS ORDERED: METHADONE HCL 40 MG DISPERSABLE TABLET ONE (04:06)
[2017-07-25] MEDS ORDERED: METHADONE HCL 10 MG TABLET ONE (04:06)
[2017-07-25] MEDS: CYCLOBENZAPRINE HCL 10 MG TABLET (FP) PO SCH ×3 (06:04→21:02)
[2017-07-25] MEDS: DOCUSATE SODIUM 100 MG CAPSULE (FP) PO SCH ×3 (06:04→21:02)
[2017-07-25] MEDS: METHADONE 80 MG, METHADONE 20 MG PO SCH (06:04)
[2017-07-25] MEDS: NICOTINE POLACRILEX 4 MG GUM BUC PRN (09:00)
[2017-07-25] MEDS: NAPROXEN 500 MG TABLET (FP) PO SCH ×2 (09:51→21:04)
[2017-07-25] MEDS: PANTOPRAZOLE 40 MG TABLET (FP) PO SCH (09:51)
[2017-07-25] MEDS: PRENATAL VITAMINS W/ FOLIC ACID TABLET (FP) PO SCH (09:51)
[2017-07-25] MEDS: SERTRALINE HCL 50 MG TABLET (FP) PO SCH (09:51)
[2017-07-25] MEDS: NICOTINE 21 MG/24 HOURS TOPICAL PATCH TD SCH (09:51)
[2017-07-25] MEDS: hydrOXYzine PAMOATE 50 MG CAPSULE (FP) PO PRN ×2 (09:53→21:02)
[2017-07-25] MEDS: SENNOSIDES 8.6MG TABLET (FP) PO SCH (21:02)
[2017-07-25] MEDS: THIAMINE HCL 100 MG TABLET (FP) PO SCH (21:02)
[2017-07-26] MEDS ORDERED: METHADONE HCL 40 MG DISPERSABLE TABLET ONE (03:55)
[2017-07-26] MEDS ORDERED: METHADONE HCL 10 MG TABLET ONE (03:55)
[2017-07-26] MEDS: METHADONE 80 MG, METHADONE 20 MG PO SCH (06:06)
[2017-07-26] MEDS: DOCUSATE SODIUM 100 MG CAPSULE (FP) PO SCH ×3 (06:07→21:11)
[2017-07-26] MEDS: CYCLOBENZAPRINE HCL 10 MG TABLET (FP) PO SCH ×3 (06:07→21:11)
[2017-07-26] MEDS: MAGNESIUM HYDROX 2400MG/30ML ORAL SUSPENSION 30 ML CUP PO PRN (06:11)
[2017-07-26] MEDS: NAPROXEN 500 MG TABLET (FP) PO SCH ×2 (09:45→21:11)
[2017-07-26] MEDS: PRENATAL VITAMINS W/ FOLIC ACID TABLET (FP) PO SCH (09:45)
[2017-07-26] MEDS: SERTRALINE HCL 50 MG TABLET (FP) PO SCH (09:45)
[2017-07-26] MEDS: NICOTINE 21 MG/24 HOURS TOPICAL PATCH TD SCH (09:45)
[2017-07-26] MEDS: PANTOPRAZOLE 40 MG TABLET (FP) PO SCH (09:46)
[2017-07-26] MEDS: hydrOXYzine PAMOATE 50 MG CAPSULE (FP) PO PRN ×2 (09:47→21:13)
[2017-07-26] MEDS: NICOTINE POLACRILEX 4 MG GUM BUC PRN ×3 (09:48→21:13)
[2017-07-26] MEDS: THIAMINE HCL 100 MG TABLET (FP) PO SCH (21:11)
[2017-07-26] MEDS: SENNOSIDES 8.6MG TABLET (FP) PO SCH (21:11)
[2017-07-27] MEDS ORDERED: METHADONE HCL 10 MG TABLET ONE (04:16)
[2017-07-27] MEDS ORDERED: METHADONE HCL 40 MG DISPERSABLE TABLET ONE (04:16)
[2017-07-27] MEDS: CYCLOBENZAPRINE HCL 10 MG TABLET (FP) PO SCH ×3 (06:09→21:33)
[2017-07-27] MEDS: METHADONE 80 MG, METHADONE 20 MG PO SCH (06:09)
[2017-07-27] MEDS: DOCUSATE SODIUM 100 MG CAPSULE (FP) PO SCH ×3 (06:09→21:33)
[2017-07-27] MEDS: NICOTINE POLACRILEX 4 MG GUM BUC PRN ×2 (09:04→13:39)
[2017-07-27] MEDS: SERTRALINE HCL 50 MG TABLET (FP) PO SCH (09:57)
[2017-07-27] MEDS: PANTOPRAZOLE 40 MG TABLET (FP) PO SCH (09:57)
[2017-07-27] MEDS: NICOTINE 21 MG/24 HOURS TOPICAL PATCH TD SCH (09:57)
[2017-07-27] MEDS: PRENATAL VITAMINS W/ FOLIC ACID TABLET (FP) PO SCH (09:57)
[2017-07-27] MEDS: NAPROXEN 500 MG TABLET (FP) PO SCH ×2 (09:57→21:33)
[2017-07-27] MEDS: THIAMINE HCL 100 MG TABLET (FP) PO SCH (21:33)
[2017-07-27] MEDS: SENNOSIDES 8.6MG TABLET (FP) PO SCH (21:33)
[2017-07-27] MEDS: hydrOXYzine PAMOATE 50 MG CAPSULE (FP) PO PRN (21:33)
[2017-07-28] MEDS ORDERED: METHADONE HCL 10 MG TABLET ONE (03:24)
[2017-07-28] MEDS ORDERED: METHADONE HCL 40 MG DISPERSABLE TABLET ONE (03:24)
[2017-07-28] MEDS: DOCUSATE SODIUM 100 MG CAPSULE (FP) PO SCH ×3 (06:09→21:39)
[2017-07-28] MEDS: CYCLOBENZAPRINE HCL 10 MG TABLET (FP) PO SCH ×3 (06:09→21:40)
[2017-07-28] MEDS: METHADONE 80 MG, METHADONE 20 MG PO SCH (06:09)
[2017-07-28] MEDS: SERTRALINE HCL 50 MG TABLET (FP) PO SCH (09:47)
[2017-07-28] MEDS: NICOTINE 21 MG/24 HOURS TOPICAL PATCH TD SCH (09:47)
[2017-07-28] MEDS: NAPROXEN 500 MG TABLET (FP) PO SCH ×2 (09:47→21:40)
[2017-07-28] MEDS: PRENATAL VITAMINS W/ FOLIC ACID TABLET (FP) PO SCH (09:47)
[2017-07-28] MEDS: PANTOPRAZOLE 40 MG TABLET (FP) PO SCH (09:47)
[2017-07-28] MEDS: NICOTINE POLACRILEX 4 MG GUM BUC PRN ×2 (09:48→13:40)
[2017-07-28] MEDS: hydrOXYzine PAMOATE 50 MG CAPSULE (FP) PO PRN ×2 (14:13→21:39)
[2017-07-28] MEDS: SENNOSIDES 8.6MG TABLET (FP) PO SCH (21:39)
[2017-07-28] MEDS: THIAMINE HCL 100 MG TABLET (FP) PO SCH (21:40)
[2017-07-29] MEDS ORDERED: METHADONE HCL 10 MG TABLET ONE (05:07)
[2017-07-29] MEDS ORDERED: METHADONE HCL 40 MG DISPERSABLE TABLET ONE (05:07)
[2017-07-29] MEDS: DOCUSATE SODIUM 100 MG CAPSULE (FP) PO SCH ×3 (06:01→21:29)
[2017-07-29] MEDS: CYCLOBENZAPRINE HCL 10 MG TABLET (FP) PO SCH ×3 (06:01→21:29)
[2017-07-29] MEDS: METHADONE 80 MG, METHADONE 20 MG PO SCH (06:01)
[2017-07-29] MEDS: PANTOPRAZOLE 40 MG TABLET (FP) PO SCH (09:00)
[2017-07-29] MEDS: PRENATAL VITAMINS W/ FOLIC ACID TABLET (FP) PO SCH (09:00)
[2017-07-29] MEDS: NICOTINE 21 MG/24 HOURS TOPICAL PATCH TD SCH (09:00)
[2017-07-29] MEDS: SERTRALINE HCL 50 MG TABLET (FP) PO SCH (09:00)
[2017-07-29] MEDS: NAPROXEN 500 MG TABLET (FP) PO SCH ×2 (09:00→21:29)
[2017-07-29] MEDS: NICOTINE POLACRILEX 4 MG GUM BUC PRN ×3 (09:02→19:27)
[2017-07-29] MEDS: hydrOXYzine PAMOATE 50 MG CAPSULE (FP) PO PRN ×2 (13:12→21:30)
[2017-07-29] MEDS: SENNOSIDES 8.6MG TABLET (FP) PO SCH (21:29)
[2017-07-29] MEDS: THIAMINE HCL 100 MG TABLET (FP) PO SCH (21:29)
[2017-07-30] MEDS ORDERED: METHADONE HCL 10 MG TABLET ONE (03:02)
[2017-07-30] MEDS ORDERED: METHADONE HCL 40 MG DISPERSABLE TABLET ONE (03:02)
[2017-07-30] MEDS: DOCUSATE SODIUM 100 MG CAPSULE (FP) PO SCH ×3 (05:52→21:17)
[2017-07-30] MEDS: CYCLOBENZAPRINE HCL 10 MG TABLET (FP) PO SCH ×3 (05:52→21:17)
[2017-07-30] MEDS: METHADONE 80 MG, METHADONE 20 MG PO SCH (05:53)
[2017-07-30] MEDS: SERTRALINE HCL 50 MG TABLET (FP) PO SCH (09:44)
[2017-07-30] MEDS: NICOTINE 21 MG/24 HOURS TOPICAL PATCH TD SCH (09:44)
[2017-07-30] MEDS: NAPROXEN 500 MG TABLET (FP) PO SCH ×2 (09:45→21:17)
[2017-07-30] MEDS: PANTOPRAZOLE 40 MG TABLET (FP) PO SCH (09:45)
[2017-07-30] MEDS: PRENATAL VITAMINS W/ FOLIC ACID TABLET (FP) PO SCH (09:45)
[2017-07-30] MEDS: NICOTINE POLACRILEX 4 MG GUM BUC PRN ×2 (14:09→21:17)
[2017-07-30] MEDS: SENNOSIDES 8.6MG TABLET (FP) PO SCH (21:17)
[2017-07-30] MEDS: hydrOXYzine PAMOATE 50 MG CAPSULE (FP) PO PRN (21:17)
[2017-07-30] MEDS: THIAMINE HCL 100 MG TABLET (FP) PO SCH (21:17)
[2017-07-31] MEDS ORDERED: METHADONE HCL 40 MG DISPERSABLE TABLET ONE (03:39)
[2017-07-31] MEDS ORDERED: METHADONE HCL 10 MG TABLET ONE (03:39)
[2017-07-31] MEDS: DOCUSATE SODIUM 100 MG CAPSULE (FP) PO SCH ×3 (06:08→21:20)
[2017-07-31] MEDS: METHADONE 80 MG, METHADONE 20 MG PO SCH (06:09)
[2017-07-31] MEDS: CYCLOBENZAPRINE HCL 10 MG TABLET (FP) PO SCH ×3 (06:09→21:20)
[2017-07-31] MEDS: NAPROXEN 500 MG TABLET (FP) PO SCH ×2 (09:49→21:20)
[2017-07-31] MEDS: PRENATAL VITAMINS W/ FOLIC ACID TABLET (FP) PO SCH (09:49)
[2017-07-31] MEDS: NICOTINE 21 MG/24 HOURS TOPICAL PATCH TD SCH (09:49)
[2017-07-31] MEDS: PANTOPRAZOLE 40 MG TABLET (FP) PO SCH (09:50)
[2017-07-31] MEDS: NICOTINE POLACRILEX 4 MG GUM BUC PRN ×2 (09:50→13:46)
[2017-07-31] MEDS: SERTRALINE HCL 50 MG TABLET (FP) PO SCH (09:50)
[2017-07-31] MEDS: hydrOXYzine PAMOATE 50 MG CAPSULE (FP) PO PRN ×2 (13:45→21:20)
[2017-07-31] MEDS: THIAMINE HCL 100 MG TABLET (FP) PO SCH (21:20)
[2017-07-31] MEDS: SENNOSIDES 8.6MG TABLET (FP) PO SCH (21:20)
[2017-08-01] MEDS ORDERED: METHADONE HCL 40 MG DISPERSABLE TABLET ONE (04:54)
[2017-08-01] MEDS ORDERED: METHADONE HCL 10 MG TABLET ONE (04:54)
[2017-08-01] MEDS: DOCUSATE SODIUM 100 MG CAPSULE (FP) PO SCH ×3 (06:31→21:19)
[2017-08-01] MEDS: CYCLOBENZAPRINE HCL 10 MG TABLET (FP) PO SCH ×3 (06:31→21:19)
[2017-08-01] MEDS: METHADONE 80 MG, METHADONE 20 MG PO SCH (06:32)
[2017-08-01] MEDS: PRENATAL VITAMINS W/ FOLIC ACID TABLET (FP) PO SCH (09:07)
[2017-08-01] MEDS: PANTOPRAZOLE 40 MG TABLET (FP) PO SCH (09:07)
[2017-08-01] MEDS: NAPROXEN 500 MG TABLET (FP) PO SCH ×2 (09:07→21:19)
[2017-08-01] MEDS: NICOTINE 21 MG/24 HOURS TOPICAL PATCH TD SCH (09:07)
[2017-08-01] MEDS: SERTRALINE HCL 50 MG TABLET (FP) PO SCH (09:07)
[2017-08-01] MEDS: NICOTINE POLACRILEX 4 MG GUM BUC PRN ×3 (09:09→21:19)
--- NOTE | 2017-08-01 16:01 | PN ---
S Progress Note Note: Patient requested increase in current methadone maintenance dose of 100 mg qd. Patient reports no withdrawal symptoms . Patient AO x 3, in no apparent distress , ambulating in the unit. Patient to follow up with out patient [facility] for requested dose adjustment Continue rehab
[2017-08-01] MEDS: SENNOSIDES 8.6MG TABLET (FP) PO SCH (21:19)
[2017-08-01] MEDS: hydrOXYzine PAMOATE 50 MG CAPSULE (FP) PO PRN (21:19)
[2017-08-01] MEDS: THIAMINE HCL 100 MG TABLET (FP) PO SCH (21:19)
[2017-08-02] MEDS ORDERED: METHADONE HCL 40 MG DISPERSABLE TABLET ONE (03:21)
[2017-08-02] MEDS ORDERED: METHADONE HCL 10 MG TABLET ONE (03:21)
[2017-08-02] MEDS: METHADONE 80 MG, METHADONE 20 MG PO SCH (06:21)
[2017-08-02] MEDS: CYCLOBENZAPRINE HCL 10 MG TABLET (FP) PO SCH ×3 (06:22→21:27)
[2017-08-02] MEDS: DOCUSATE SODIUM 100 MG CAPSULE (FP) PO SCH ×3 (06:22→21:27)
[2017-08-02] MEDS: NICOTINE POLACRILEX 4 MG GUM BUC PRN ×2 (08:57→14:47)
[2017-08-02] MEDS: NAPROXEN 500 MG TABLET (FP) PO SCH ×2 (09:39→21:27)
[2017-08-02] MEDS: NICOTINE 21 MG/24 HOURS TOPICAL PATCH TD SCH (09:39)
[2017-08-02] MEDS: PANTOPRAZOLE 40 MG TABLET (FP) PO SCH (09:39)
[2017-08-02] MEDS: SERTRALINE HCL 50 MG TABLET (FP) PO SCH (09:39)
[2017-08-02] MEDS: PRENATAL VITAMINS W/ FOLIC ACID TABLET (FP) PO SCH (09:39)
[2017-08-02] MEDS: THIAMINE HCL 100 MG TABLET (FP) PO SCH (21:27)
[2017-08-02] MEDS: hydrOXYzine PAMOATE 50 MG CAPSULE (FP) PO PRN (21:28)
[2017-08-02] MEDS: SENNOSIDES 8.6MG TABLET (FP) PO SCH (21:28)
[2017-08-03] MEDS ORDERED: METHADONE HCL 40 MG DISPERSABLE TABLET ONE (03:29)
[2017-08-03] MEDS ORDERED: METHADONE HCL 10 MG TABLET ONE (03:29)
[2017-08-03] MEDS: CYCLOBENZAPRINE HCL 10 MG TABLET (FP) PO SCH ×3 (06:01→21:16)
[2017-08-03] MEDS: DOCUSATE SODIUM 100 MG CAPSULE (FP) PO SCH ×3 (06:01→21:16)
[2017-08-03] MEDS: METHADONE 80 MG, METHADONE 20 MG PO SCH (06:01)
[2017-08-03] MEDS: NICOTINE 21 MG/24 HOURS TOPICAL PATCH TD SCH (09:50)
[2017-08-03] MEDS: PANTOPRAZOLE 40 MG TABLET (FP) PO SCH (09:50)
[2017-08-03] MEDS: NAPROXEN 500 MG TABLET (FP) PO SCH ×2 (09:50→21:17)
[2017-08-03] MEDS: PRENATAL VITAMINS W/ FOLIC ACID TABLET (FP) PO SCH (09:50)
[2017-08-03] MEDS: SERTRALINE HCL 50 MG TABLET (FP) PO SCH (09:50)
[2017-08-03] MEDS: NICOTINE POLACRILEX 4 MG GUM BUC PRN ×2 (09:52→14:14)
[2017-08-03] MEDS: SENNOSIDES 8.6MG TABLET (FP) PO SCH (21:16)
[2017-08-03] MEDS: THIAMINE HCL 100 MG TABLET (FP) PO SCH (21:16)
[2017-08-03] MEDS: hydrOXYzine PAMOATE 50 MG CAPSULE (FP) PO PRN (21:16)
[2017-08-04] MEDS ORDERED: METHADONE HCL 40 MG DISPERSABLE TABLET ONE (03:35)
[2017-08-04] MEDS ORDERED: METHADONE HCL 10 MG TABLET ONE (03:35)
[2017-08-04] MEDS: CYCLOBENZAPRINE HCL 10 MG TABLET (FP) PO SCH ×3 (06:05→21:17)
[2017-08-04] MEDS: METHADONE 80 MG, METHADONE 20 MG PO SCH (06:05)
[2017-08-04] MEDS: DOCUSATE SODIUM 100 MG CAPSULE (FP) PO SCH ×3 (06:05→21:17)
[2017-08-04] MEDS: NICOTINE 21 MG/24 HOURS TOPICAL PATCH TD SCH (09:39)
[2017-08-04] MEDS: NAPROXEN 500 MG TABLET (FP) PO SCH ×2 (09:39→21:17)
[2017-08-04] MEDS: PANTOPRAZOLE 40 MG TABLET (FP) PO SCH (09:39)
[2017-08-04] MEDS: SERTRALINE HCL 50 MG TABLET (FP) PO SCH (09:39)
[2017-08-04] MEDS: PRENATAL VITAMINS W/ FOLIC ACID TABLET (FP) PO SCH (09:40)
[2017-08-04] MEDS: MAGNESIUM HYDROX 2400MG/30ML ORAL SUSPENSION 30 ML CUP PO PRN (09:40)
[2017-08-04] MEDS: NICOTINE POLACRILEX 4 MG GUM BUC PRN ×2 (09:41→14:39)
[2017-08-04] MEDS: THIAMINE HCL 100 MG TABLET (FP) PO SCH (21:16)
[2017-08-04] MEDS: SENNOSIDES 8.6MG TABLET (FP) PO SCH (21:16)
[2017-08-04] MEDS: hydrOXYzine PAMOATE 50 MG CAPSULE (FP) PO PRN (21:17)
[2017-08-05] MEDS ORDERED: METHADONE HCL 10 MG TABLET ONE (03:08)
[2017-08-05] MEDS ORDERED: METHADONE HCL 40 MG DISPERSABLE TABLET ONE (03:08)
[2017-08-05] MEDS: DOCUSATE SODIUM 100 MG CAPSULE (FP) PO SCH ×3 (06:14→21:18)
[2017-08-05] MEDS: CYCLOBENZAPRINE HCL 10 MG TABLET (FP) PO SCH ×3 (06:15→21:18)
[2017-08-05] MEDS: METHADONE 80 MG, METHADONE 20 MG PO SCH (06:15)
[2017-08-05] MEDS: NICOTINE 21 MG/24 HOURS TOPICAL PATCH TD SCH (09:38)
[2017-08-05] MEDS: SERTRALINE HCL 50 MG TABLET (FP) PO SCH (09:38)
[2017-08-05] MEDS: PANTOPRAZOLE 40 MG TABLET (FP) PO SCH (09:38)
[2017-08-05] MEDS: PRENATAL VITAMINS W/ FOLIC ACID TABLET (FP) PO SCH (09:38)
[2017-08-05] MEDS: NAPROXEN 500 MG TABLET (FP) PO SCH ×2 (09:38→21:18)
[2017-08-05] MEDS: MAGNESIUM HYDROX 2400MG/30ML ORAL SUSPENSION 30 ML CUP PO PRN (09:40)
[2017-08-05] MEDS: NICOTINE POLACRILEX 4 MG GUM BUC PRN ×2 (09:41→13:11)
[2017-08-05] MEDS: hydrOXYzine PAMOATE 50 MG CAPSULE (FP) PO PRN ×2 (15:04→21:18)
[2017-08-05] MEDS: SENNOSIDES 8.6MG TABLET (FP) PO SCH (21:18)
[2017-08-05] MEDS: THIAMINE HCL 100 MG TABLET (FP) PO SCH (21:18)
[2017-08-06] MEDS ORDERED: METHADONE HCL 40 MG DISPERSABLE TABLET ONE (03:07)
[2017-08-06] MEDS ORDERED: METHADONE HCL 10 MG TABLET ONE (03:07)
[2017-08-06] MEDS: CYCLOBENZAPRINE HCL 10 MG TABLET (FP) PO SCH ×3 (06:14→21:18)
[2017-08-06] MEDS: DOCUSATE SODIUM 100 MG CAPSULE (FP) PO SCH ×3 (06:14→21:19)
[2017-08-06] MEDS: METHADONE 80 MG, METHADONE 20 MG PO SCH (06:14)
[2017-08-06] MEDS: NICOTINE POLACRILEX 4 MG GUM BUC PRN ×3 (08:58→21:19)
[2017-08-06] MEDS: SERTRALINE HCL 50 MG TABLET (FP) PO SCH (10:22)
[2017-08-06] MEDS: PRENATAL VITAMINS W/ FOLIC ACID TABLET (FP) PO SCH (10:22)
[2017-08-06] MEDS: PANTOPRAZOLE 40 MG TABLET (FP) PO SCH (10:22)
[2017-08-06] MEDS: NAPROXEN 500 MG TABLET (FP) PO SCH ×2 (10:22→21:18)
[2017-08-06] MEDS: NICOTINE 21 MG/24 HOURS TOPICAL PATCH TD SCH (10:22)
[2017-08-06] MEDS: hydrOXYzine PAMOATE 50 MG CAPSULE (FP) PO PRN ×2 (14:46→21:19)
[2017-08-06] MEDS: THIAMINE HCL 100 MG TABLET (FP) PO SCH (21:18)
[2017-08-06] MEDS: SENNOSIDES 8.6MG TABLET (FP) PO SCH (21:19)
[2017-08-07] MEDS ORDERED: METHADONE HCL 40 MG DISPERSABLE TABLET ONE (04:20)
[2017-08-07] MEDS ORDERED: METHADONE HCL 10 MG TABLET ONE (04:20)
[2017-08-07] MEDS: DOCUSATE SODIUM 100 MG CAPSULE (FP) PO SCH ×3 (06:07→21:39)
[2017-08-07] MEDS: CYCLOBENZAPRINE HCL 10 MG TABLET (FP) PO SCH ×3 (06:07→21:39)
[2017-08-07] MEDS: METHADONE 80 MG, METHADONE 20 MG PO SCH (06:07)
--- NOTE | 2017-08-07 07:20 | PN ---
Psychiatric Progress Note Vital Signs: Vital Signs Period Temp Pulse Resp BP Sys/Villavicencio Pulse Ox Last 24 Hr 16 Current Medications: Active Medications Generic Name Dose Route Start Last Admin Trade Name Freq PRN Reason Stop Dose Admin Acetaminophen 650 mg 07/17/17 15:20 Tylenol - PO Q4H PRN FEVER Al Hydroxide/Mg Hydroxide 30 ml 07/17/17 15:20 Mylanta Oral Suspension - PO Q6H PRN DYSPEPSIA Cyclobenzaprine HCl 10 mg 07/19/17 14:00 08/07/17 06:07 Flexeril - PO 10 mg TID TL Administration Docusate Sodium 100 mg 07/24/17 14:00 08/07/17 06:07 Colace - PO 100 mg TID TL Administration Eucalyptus/Menthol/Phenol/Sorbitol 1 each 07/17/17 15:20 Cepastat Lozenge - MM Q4H PRN SORE THROAT Guaifenesin 10 ml 07/17/17 15:20 Robitussin Dm - PO Q6H PRN COUGH Hydroxyzine Pamoate 50 mg 07/17/17 15:20 08/06/17 21:19 Vistaril - PO 50 mg Q4H PRN Administration AGITATION Ibuprofen 400 mg 07/17/17 15:20 07/21/17 06:13 Motrin - PO 400 mg Q6H PRN Administration Pain Level 4-6 Loperamide HCl 4 mg 07/17/17 15:20 Imodium - PO Q6H PRN DIARRHEA Magnesium Citrate 300 ml 07/17/17 15:20 Citroma - PO Q48H PRN CONSTIPATION Magnesium Hydroxide 30 ml 07/17/17 15:20 08/05/17 09:40 Milk Of Magnesia - PO 30 ml DAILY PRN Administration CONSTIPATION Methadone HCl 80 mg/ Methadone 100 mg 08/01/17 06:00 08/07/17 06:07 HCl 20 mg PO 08/08/17 05:59 100 mg DAILY@0600 TL Administration Naproxen 500 mg 07/19/17 13:00 08/06/17 21:18 Naprosyn - PO 500 mg BID TL Administration Nicotine 21 mg 07/18/17 10:00 08/06/17 10:22 Nicoderm Patch - TD 21 mg DAILY TL Administration Nicotine Polacrilex 4 mg 07/17/17 15:20 08/06/17 21:19 Nicorette Gum - BUC 4 mg Q2H PRN Administration NICOTINE REPLACEMENT RX Pantoprazole Sodium 40 mg 07/19/17 12:45 08/06/17 10:22 Protonix - PO 40 mg DAILY TL Administration Multivit/Folic Acid/Iron 1 tab 07/18/17 10:00 08/06/17 10:22 Vitamins (Sjr) - PO 1 tab DAILY TL Administration Pseudoephedrine/Triprolidine 1 combo 07/17/17 15:20 Actifed - PO TID PRN NASAL CONGESTION Senna 2 tab 07/24/17 22:00 08/06/17 21:19 Senna - PO 2 tab HS TL Administration Sertraline HCl 100 mg 07/18/17 10:00 08/06/17 10:22 Zoloft - PO 100 mg DAILY TL Administration Thiamine HCl 100 mg 07/17/17 22:00 08/06/17 21:18 Vitamin B1 - PO 100 mg HS TL Administration Mental Status Exam - Mental Status Exam Voice Loudness: Normal Psychiatric Treatment Plan - Problem List (1) Sedative hypnotic or anxiolytic dependence Current Visit: Yes (2) Opioid dependence on agonist therapy Current Visit: No (3) Nicotine dependence Current Visit: No Qualifiers: Nicotine product type: cigarettes Substance use status: uncomplicated Qualified Code(s): F17.210 - Nicotine dependence, cigarettes, uncomplicated (4) MDD (major depressive disorder) Current Visit: Yes Comment: Self reports. Is prescribed Zoloft 100mg PO daily. (5) Substance induced mood disorder Current Visit: Yes (6) Substance-induced sleep disorder Current Visit: Yes
[2017-08-07] MEDS: NICOTINE 21 MG/24 HOURS TOPICAL PATCH TD SCH (09:00)
[2017-08-07] MEDS: SERTRALINE HCL 50 MG TABLET (FP) PO SCH (09:00)
[2017-08-07] MEDS: PRENATAL VITAMINS W/ FOLIC ACID TABLET (FP) PO SCH (09:01)
[2017-08-07] MEDS: PANTOPRAZOLE 40 MG TABLET (FP) PO SCH (09:01)
[2017-08-07] MEDS: NAPROXEN 500 MG TABLET (FP) PO SCH ×2 (09:01→21:39)
[2017-08-07] MEDS: NICOTINE POLACRILEX 4 MG GUM BUC PRN ×3 (09:01→21:41)
[2017-08-07] MEDS: hydrOXYzine PAMOATE 50 MG CAPSULE (FP) PO PRN ×2 (14:49→21:39)
[2017-08-07] MEDS: THIAMINE HCL 100 MG TABLET (FP) PO SCH (21:39)
[2017-08-07] MEDS: SENNOSIDES 8.6MG TABLET (FP) PO SCH (21:39)
[2017-08-08] MEDS ORDERED: METHADONE HCL 40 MG DISPERSABLE TABLET ONE (04:09)
[2017-08-08] MEDS ORDERED: METHADONE HCL 10 MG TABLET ONE (04:09)
[2017-08-08] MEDS: METHADONE 80 MG, METHADONE 20 MG PO SCH (06:05)
[2017-08-08] MEDS: DOCUSATE SODIUM 100 MG CAPSULE (FP) PO SCH ×3 (06:05→21:23)
[2017-08-08] MEDS: CYCLOBENZAPRINE HCL 10 MG TABLET (FP) PO SCH ×3 (06:05→21:24)
[2017-08-08] MEDS: NAPROXEN 500 MG TABLET (FP) PO SCH ×2 (10:09→21:24)
[2017-08-08] MEDS: PRENATAL VITAMINS W/ FOLIC ACID TABLET (FP) PO SCH (10:09)
[2017-08-08] MEDS: SERTRALINE HCL 50 MG TABLET (FP) PO SCH (10:09)
[2017-08-08] MEDS: NICOTINE 21 MG/24 HOURS TOPICAL PATCH TD SCH (10:10)
[2017-08-08] MEDS: PANTOPRAZOLE 40 MG TABLET (FP) PO SCH (10:10)
[2017-08-08] MEDS: NICOTINE POLACRILEX 4 MG GUM BUC PRN ×3 (10:11→21:15)
[2017-08-08] MEDS: hydrOXYzine PAMOATE 50 MG CAPSULE (FP) PO PRN ×2 (13:26→21:24)
[2017-08-08] MEDS: TOLNAFTATE 1% CREAM 15 GM TUBE TP SCH ×2 (14:19→21:49)
[2017-08-08] MEDS: SENNOSIDES 8.6MG TABLET (FP) PO SCH (21:23)
[2017-08-08] MEDS: THIAMINE HCL 100 MG TABLET (FP) PO SCH (21:23)
[2017-08-09] MEDS ORDERED: METHADONE HCL 40 MG DISPERSABLE TABLET ONE (04:09)
[2017-08-09] MEDS ORDERED: METHADONE HCL 10 MG TABLET ONE (04:09)
[2017-08-09] MEDS: DOCUSATE SODIUM 100 MG CAPSULE (FP) PO SCH ×3 (06:05→21:03)
[2017-08-09] MEDS: CYCLOBENZAPRINE HCL 10 MG TABLET (FP) PO SCH ×3 (06:05→21:03)
[2017-08-09] MEDS: METHADONE 80 MG, METHADONE 20 MG PO SCH (06:06)
[2017-08-09] MEDS: NICOTINE 21 MG/24 HOURS TOPICAL PATCH TD SCH (10:04)
[2017-08-09] MEDS: SERTRALINE HCL 50 MG TABLET (FP) PO SCH (10:04)
[2017-08-09] MEDS: PRENATAL VITAMINS W/ FOLIC ACID TABLET (FP) PO SCH (10:04)
[2017-08-09] MEDS: NAPROXEN 500 MG TABLET (FP) PO SCH ×2 (10:04→21:03)
[2017-08-09] MEDS: PANTOPRAZOLE 40 MG TABLET (FP) PO SCH (10:04)
[2017-08-09] MEDS: TOLNAFTATE 1% CREAM 15 GM TUBE TP SCH ×2 (10:05→21:05)
[2017-08-09] MEDS ORDERED: PT OWN MED DRAWER 7, Y5N ONE (10:05)
[2017-08-09] MEDS: NICOTINE POLACRILEX 4 MG GUM BUC PRN ×2 (14:37→21:05)
[2017-08-09] MEDS: hydrOXYzine PAMOATE 50 MG CAPSULE (FP) PO PRN (21:03)
[2017-08-09] MEDS: THIAMINE HCL 100 MG TABLET (FP) PO SCH (21:03)
[2017-08-09] MEDS: SENNOSIDES 8.6MG TABLET (FP) PO SCH (21:03)
[2017-08-10] MEDS ORDERED: METHADONE HCL 10 MG TABLET ONE (04:17)
[2017-08-10] MEDS ORDERED: METHADONE HCL 40 MG DISPERSABLE TABLET ONE (04:17)
[2017-08-10] MEDS: DOCUSATE SODIUM 100 MG CAPSULE (FP) PO SCH ×3 (06:14→21:31)
[2017-08-10] MEDS: CYCLOBENZAPRINE HCL 10 MG TABLET (FP) PO SCH ×3 (06:14→21:31)
[2017-08-10] MEDS: METHADONE 80 MG, METHADONE 20 MG PO SCH (06:14)
[2017-08-10] MEDS ORDERED: PT OWN MED DRAWER 7, Y5N ONE (08:58)
[2017-08-10] MEDS: PANTOPRAZOLE 40 MG TABLET (FP) PO SCH (10:01)
[2017-08-10] MEDS: NAPROXEN 500 MG TABLET (FP) PO SCH ×2 (10:01→21:31)
[2017-08-10] MEDS: PRENATAL VITAMINS W/ FOLIC ACID TABLET (FP) PO SCH (10:01)
[2017-08-10] MEDS: NICOTINE 21 MG/24 HOURS TOPICAL PATCH TD SCH (10:01)
[2017-08-10] MEDS: SERTRALINE HCL 50 MG TABLET (FP) PO SCH (10:01)
[2017-08-10] MEDS: TOLNAFTATE 1% CREAM 15 GM TUBE TP SCH ×2 (10:01→21:32)
[2017-08-10] MEDS: NICOTINE POLACRILEX 4 MG GUM BUC PRN ×3 (10:03→21:31)
[2017-08-10] MEDS: hydrOXYzine PAMOATE 50 MG CAPSULE (FP) PO PRN ×2 (13:02→21:31)
[2017-08-10] MEDS: THIAMINE HCL 100 MG TABLET (FP) PO SCH (21:30)
[2017-08-10] MEDS: SENNOSIDES 8.6MG TABLET (FP) PO SCH (21:31)
[2017-08-11] MEDS ORDERED: METHADONE HCL 10 MG TABLET ONE (04:57)
[2017-08-11] MEDS ORDERED: METHADONE HCL 40 MG DISPERSABLE TABLET ONE (04:57)
[2017-08-11] MEDS: DOCUSATE SODIUM 100 MG CAPSULE (FP) PO SCH ×3 (06:14→21:18)
[2017-08-11] MEDS: CYCLOBENZAPRINE HCL 10 MG TABLET (FP) PO SCH ×3 (06:14→21:18)
[2017-08-11] MEDS: METHADONE 80 MG, METHADONE 20 MG PO SCH (06:14)
[2017-08-11] MEDS: hydrOXYzine PAMOATE 50 MG CAPSULE (FP) PO PRN (08:44)
[2017-08-11] MEDS: NICOTINE POLACRILEX 4 MG GUM BUC PRN ×2 (08:45→20:25)
[2017-08-11] MEDS: NAPROXEN 500 MG TABLET (FP) PO SCH ×2 (09:40→21:18)
[2017-08-11] MEDS: SERTRALINE HCL 50 MG TABLET (FP) PO SCH (09:40)
[2017-08-11] MEDS: PRENATAL VITAMINS W/ FOLIC ACID TABLET (FP) PO SCH (09:40)
[2017-08-11] MEDS: NICOTINE 21 MG/24 HOURS TOPICAL PATCH TD SCH (09:40)
[2017-08-11] MEDS: TOLNAFTATE 1% CREAM 15 GM TUBE TP SCH ×2 (09:40→21:20)
[2017-08-11] MEDS: PANTOPRAZOLE 40 MG TABLET (FP) PO SCH (09:40)
[2017-08-11] MEDS: MAGNESIUM HYDROX 2400MG/30ML ORAL SUSPENSION 30 ML CUP PO PRN (18:30)
[2017-08-11] MEDS: THIAMINE HCL 100 MG TABLET (FP) PO SCH (21:18)
[2017-08-11] MEDS: SENNOSIDES 8.6MG TABLET (FP) PO SCH (21:18)
[2017-08-12] MEDS ORDERED: METHADONE HCL 40 MG DISPERSABLE TABLET ONE (05:07)
[2017-08-12] MEDS ORDERED: METHADONE HCL 10 MG TABLET ONE (05:07)
[2017-08-12] MEDS: METHADONE 80 MG, METHADONE 20 MG PO SCH (06:22)
[2017-08-12] MEDS: DOCUSATE SODIUM 100 MG CAPSULE (FP) PO SCH ×3 (06:23→21:18)
[2017-08-12] MEDS: CYCLOBENZAPRINE HCL 10 MG TABLET (FP) PO SCH ×3 (06:23→21:18)
[2017-08-12] MEDS: NICOTINE 21 MG/24 HOURS TOPICAL PATCH TD SCH (09:40)
[2017-08-12] MEDS: SERTRALINE HCL 50 MG TABLET (FP) PO SCH (09:41)
[2017-08-12] MEDS: PRENATAL VITAMINS W/ FOLIC ACID TABLET (FP) PO SCH (09:41)
[2017-08-12] MEDS: NAPROXEN 500 MG TABLET (FP) PO SCH ×2 (09:41→21:18)
[2017-08-12] MEDS: PANTOPRAZOLE 40 MG TABLET (FP) PO SCH (09:41)
[2017-08-12] MEDS: TOLNAFTATE 1% CREAM 15 GM TUBE TP SCH ×2 (09:41→21:50)
[2017-08-12] MEDS: NICOTINE POLACRILEX 4 MG GUM BUC PRN ×2 (09:42→12:34)
[2017-08-12] MEDS: hydrOXYzine PAMOATE 50 MG CAPSULE (FP) PO PRN ×2 (12:34→21:19)
[2017-08-12] MEDS: THIAMINE HCL 100 MG TABLET (FP) PO SCH (21:18)
[2017-08-12] MEDS: MAGNESIUM HYDROX 2400MG/30ML ORAL SUSPENSION 30 ML CUP PO PRN (21:18)
[2017-08-12] MEDS: SENNOSIDES 8.6MG TABLET (FP) PO SCH (21:18)
[2017-08-13] MEDS ORDERED: METHADONE HCL 10 MG TABLET ONE (06:06)
[2017-08-13] MEDS: DOCUSATE SODIUM 100 MG CAPSULE (FP) PO SCH ×3 (06:07→21:20)
[2017-08-13] MEDS ORDERED: METHADONE HCL 40 MG DISPERSABLE TABLET ONE (06:07)
[2017-08-13] MEDS: CYCLOBENZAPRINE HCL 10 MG TABLET (FP) PO SCH ×3 (06:07→21:20)
[2017-08-13] MEDS: METHADONE 80 MG, METHADONE 20 MG PO SCH (06:08)
--- NOTE | 2017-08-13 06:42 | PN ---
Psychiatric Progress Note Vital Signs: Vital Signs Period Temp Pulse Resp BP Sys/Villavicencio Pulse Ox Last 24 Hr 97.9 F 89 18-19 116/77 Date of Session: 08/13/17 Chief Complaint:: Discharge Note HPI: Patient addressing Sedative, Hypnotic or Anxiolytic Dependence comorbid with Opoid Dependence on Agonist Therapy, Nicotine Dependence, MDD, Substance- Induced Mood Disorder and Substance-Induced Sleep Disorder Current Medications: Active Medications Generic Name Dose Route Start Last Admin Trade Name Freq PRN Reason Stop Dose Admin Acetaminophen 650 mg 07/17/17 15:20 08/09/17 14:35 Tylenol - PO 650 mg Q4H PRN Administration FEVER Al Hydroxide/Mg Hydroxide 30 ml 07/17/17 15:20 Mylanta Oral Suspension - PO Q6H PRN DYSPEPSIA Cyclobenzaprine HCl 10 mg 07/19/17 14:00 08/13/17 06:07 Flexeril - PO 10 mg TID TL Administration Docusate Sodium 100 mg 07/24/17 14:00 08/13/17 06:07 Colace - PO 100 mg TID TL Administration Eucalyptus/Menthol/Phenol/Sorbitol 1 each 07/17/17 15:20 Cepastat Lozenge - MM Q4H PRN SORE THROAT Guaifenesin 10 ml 07/17/17 15:20 Robitussin Dm - PO Q6H PRN COUGH Hydroxyzine Pamoate 50 mg 07/17/17 15:20 08/12/17 21:19 Vistaril - PO 50 mg Q4H PRN Administration AGITATION Ibuprofen 400 mg 07/17/17 15:20 07/21/17 06:13 Motrin - PO 400 mg Q6H PRN Administration Pain Level 4-6 Loperamide HCl 4 mg 07/17/17 15:20 Imodium - PO Q6H PRN DIARRHEA Magnesium Citrate 300 ml 07/17/17 15:20 Citroma - PO Q48H PRN CONSTIPATION Magnesium Hydroxide 30 ml 07/17/17 15:20 08/12/17 21:18 Milk Of Magnesia - PO 30 ml DAILY PRN Administration CONSTIPATION Methadone HCl 80 mg/ Methadone 100 mg 08/08/17 06:00 08/13/17 06:08 HCl 20 mg PO 08/15/17 05:59 100 mg DAILY@0600 TL Administration Naproxen 500 mg 07/19/17 13:00 08/12/17 21:18 Naprosyn - PO 500 mg BID TL Administration Nicotine 21 mg 07/18/17 10:00 08/12/17 09:40 Nicoderm Patch - TD 21 mg DAILY TL Administration Nicotine Polacrilex 4 mg 07/17/17 15:20 08/12/17 12:34 Nicorette Gum - BUC 4 mg Q2H PRN Administration NICOTINE REPLACEMENT RX Pantoprazole Sodium 40 mg 07/19/17 12:45 08/12/17 09:41 Protonix - PO 40 mg DAILY TL Administration Multivit/Folic Acid/Iron 1 tab 07/18/17 10:00 08/12/17 09:41 Vitamins (Sjr) - PO 1 tab DAILY TL Administration Pseudoephedrine/Triprolidine 1 combo 07/17/17 15:20 08/09/17 06:08 Actifed - PO 1 combo TID PRN Administration NASAL CONGESTION Senna 2 tab 07/24/17 22:00 08/12/17 21:18 Senna - PO 2 tab HS TL Administration Sertraline HCl 100 mg 07/18/17 10:00 08/12/17 09:41 Zoloft - PO 100 mg DAILY TL Administration Thiamine HCl 100 mg 07/17/17 22:00 08/12/17 21:18 Vitamin B1 - PO 100 mg HS TL Administration Tolnaftate 1 applic 08/08/17 13:40 08/12/17 21:50 Tinactin 1% Cream - TP 1 applic BID TL Administration Current Side Effect: No Lab tests ordered: Yes Lab tests reviewed: Yes Provider note:: Patient will complete this program on 08/14/17. She has met her treatment goals and will continue to address her issues in attending AA/NA since she has refused treatment plan st up for her. She responded well to Zoloft 100 mg po daily and Belsomra 5 mg po HS prn for insomnia. Script for 30 days supply of Zoloft is electronically transmitted to [facility]. She is stable for discharge on 08/14/17 Total face to face time:: 35 Mental Status Exam - Mental Status Exam Alert and Oriented to: Time, Place, Person Cognitive Function: Fair Patient Appearance: Well Groomed Mood: Hopeful, Euthymic Affect: Appropriate Patient Behavior: Cooperative Speech Pattern: Clear Voice Loudness: Normal, Limited Variation Thought Process: Goal Oriented Thought Disorder: Not Present Hallucinations: Denies Suicidal Ideation: Denies Insight/Judgement: Fair Sleep: Fair Appetite: Good Muscle strength/Tone: Normal Gait/Station: Normal Psychiatric Treatment Plan - Problem List (1) Sedative hypnotic or anxiolytic dependence Current Visit: Yes (2) Opioid dependence on agonist therapy Current Visit: No (3) Nicotine dependence Current Visit: No Qualifiers: Nicotine product type: cigarettes Substance use status: uncomplicated Qualified Code(s): F17.210 - Nicotine dependence, cigarettes, uncomplicated (4) MDD (major depressive disorder) Current Visit: Yes Comment: Self reports. Is prescribed Zoloft 100mg PO daily. (5) Substance induced mood disorder Current Visit: Yes (6) Substance-induced sleep disorder Current Visit: Yes Initial treatment plan: Patient will be discharged tomorrow and referred to a halfway as she is not accepting treatment plan set up for her
[2017-08-13] MEDS: PRENATAL VITAMINS W/ FOLIC ACID TABLET (FP) PO SCH (09:49)
[2017-08-13] MEDS: NAPROXEN 500 MG TABLET (FP) PO SCH ×2 (09:49→21:21)
[2017-08-13] MEDS: PANTOPRAZOLE 40 MG TABLET (FP) PO SCH (09:49)
[2017-08-13] MEDS: SERTRALINE HCL 50 MG TABLET (FP) PO SCH (09:49)
[2017-08-13] MEDS: NICOTINE 21 MG/24 HOURS TOPICAL PATCH TD SCH (09:49)
[2017-08-13] MEDS: TOLNAFTATE 1% CREAM 15 GM TUBE TP SCH ×2 (09:49→21:21)
[2017-08-13] MEDS: NICOTINE POLACRILEX 4 MG GUM BUC PRN ×3 (09:50→21:21)
[2017-08-13] MEDS: MAGNESIUM HYDROX 2400MG/30ML ORAL SUSPENSION 30 ML CUP PO PRN (10:25)
[2017-08-13] MEDS: hydrOXYzine PAMOATE 50 MG CAPSULE (FP) PO PRN ×2 (14:44→21:20)
[2017-08-13] MEDS: THIAMINE HCL 100 MG TABLET (FP) PO SCH (21:20)
[2017-08-13] MEDS: SENNOSIDES 8.6MG TABLET (FP) PO SCH (21:20)
[2017-08-14] MEDS ORDERED: METHADONE HCL 10 MG TABLET ONE (04:29)
[2017-08-14] MEDS ORDERED: METHADONE HCL 40 MG DISPERSABLE TABLET ONE (04:30)
[2017-08-14] MEDS: METHADONE 80 MG, METHADONE 20 MG PO SCH (06:25)
[2017-08-14] MEDS: CYCLOBENZAPRINE HCL 10 MG TABLET (FP) PO SCH (06:26)
[2017-08-14] MEDS: DOCUSATE SODIUM 100 MG CAPSULE (FP) PO SCH (06:26)
[2017-08-14 06:30] VITALS: BP 130/85; PULSE 84; TEMP 98
[2017-08-14] MEDS: SERTRALINE HCL 50 MG TABLET (FP) PO SCH (09:17)
[2017-08-14] MEDS: PRENATAL VITAMINS W/ FOLIC ACID TABLET (FP) PO SCH (09:17)
[2017-08-14] MEDS: NAPROXEN 500 MG TABLET (FP) PO SCH (09:17)
[2017-08-14] MEDS: PANTOPRAZOLE 40 MG TABLET (FP) PO SCH (09:17)
[2017-08-14] MEDS: TOLNAFTATE 1% CREAM 15 GM TUBE TP SCH (09:18)
[2017-08-14] MEDS: NICOTINE 21 MG/24 HOURS TOPICAL PATCH TD SCH (09:20)
== END 2017-08-14 09:25 | disposition home or self-care (01) | DRG 772 ==
LOC: YASAS 14:09 → Y3W 14:10
PROVIDERS: ADMIT Psychiatry & Neurology Psychiatry; ATTEND Psychiatry & Neurology Psychiatry
PROC: HZ42ZZZ Group Counseling for Substance Abuse Treatment, Cognitive-Behavioral (ICD-10-PCS; principal; 2017-07-17)
DX: F13.20 Sedative, hypnotic or anxiolytic dependence, uncomplicated (principal); F11.20 Opioid dependence, uncomplicated; F17.210 Nicotine dependence, cigarettes, uncomplicated; F33.9 Major depressive disorder, recurrent, unspecified; F19.24 Other psychoactive substance dependence with psychoactive substance-induced mood disorder; F19.282 Other psychoactive substance dependence with psychoactive substance-induced sleep disorder; G47.00 Insomnia, unspecified

== ENCOUNTER 2022-09-18 19:12 | Inpatient (IN) | payer OTHER ==
[2022-09-18 21:35] VITALS: BMI 23.2
[2022-09-19] MEDS ORDERED: MAG HYDROX/AL HYDROX/SIMETH 30 ML UNIT-DOSE CUP PO PRN (00:03)
[2022-09-19] MEDS ORDERED: BENZONATATE 200 MG CAPSULE PO PRN (00:03)
[2022-09-19] MEDS ORDERED: POLYETHYLENE GLYCOL (HEALTHYLAX) 3350 17 GM PACKET PO PRN (00:03)
[2022-09-19] MEDS ORDERED: BISMUTH SUBSALICYLATE 524 MG/30 ML PO PRN (00:03)
[2022-09-19] MEDS ORDERED: NICOTINE 10 MG CARTRIDGE (INHALER) IH PRN (00:03)
[2022-09-19] MEDS ORDERED: NALOXONE HCL (KLOXXADO) 8 MG SPRAY NS PRN (00:03)
[2022-09-19] MEDS ORDERED: MAGNESIUM HYDROX 2400MG/30ML ORAL SUSPENSION 30 ML CUP PO PRN (00:03)
[2022-09-19] MEDS ORDERED: ONDANSETRON *ODT* 4 MG TABLET SL PRN (00:03)
[2022-09-19] MEDS ORDERED: NALOXONE HCL 0.4 MG/ML VIAL IM PRN (00:03)
[2022-09-19] MEDS ORDERED: LOPERAMIDE HCL 2 MG CAPSULE PO PRN (00:03)
[2022-09-19] MEDS ORDERED: BENZOCAINE/MENTHOL (CHLORASEPTIC ) LOZENGE MM PRN (00:03)
[2022-09-19] MEDS ORDERED: P-EPHED 60MG/TRIPROLIDI 2.5MG TABLET PO PRN (00:03)
[2022-09-19] MEDS ORDERED: DICYCLOMINE HCL 10 MG CAPSULE PO PRN (00:03)
[2022-09-19] MEDS ORDERED: guaiFENesin 600 MG TABLET.ER (FP) PO PRN (00:03)
[2022-09-19] MEDS ORDERED: IBUPROFEN 400 MG TABLET (FP) PO PRN (00:03)
[2022-09-19] MEDS ORDERED: levETIRAcetam 500 MG TABLET (FP) PO ONE (00:39)
[2022-09-19] MEDS: levETIRAcetam 500 MG TABLET (FP) PO SCH ×3 (00:41→22:12)
[2022-09-19] MEDS ORDERED: BACITRACIN 0.9 GM PACKET ONE (02:03)
[2022-09-19] MEDS: BACITRACIN ZINC 15 GM TUBE TOPICAL OINTMENT TP SCH ×3 (02:06→22:12)
[2022-09-19] MEDS: MELATONIN 5 MG TABLETS PO PRN ×2 (02:12→22:12)
[2022-09-19] MEDS: METHOCARBAMOL 500 MG TABLET PO PRN ×2 (02:12→22:14)
[2022-09-19] MEDS ORDERED: cloNIDine HCL 0.1 MG TABLET PO ONE (02:40)
[2022-09-19] MEDS ORDERED: methaDONE HCL 10 MG TABLET PO SCH (10:00)
[2022-09-19] MEDS: diazePAM 5 MG TABLET PO SCH ×3 (10:43→22:37)
[2022-09-19] MEDS: PRENATAL VITAMINS W/ FOLIC ACID TABLET (FP) PO SCH (10:43)
[2022-09-19] MEDS: ACETAMINOPHEN 325 MG TABLET (FP) PO PRN ×2 (10:44→17:38)
[2022-09-19] MEDS: NICOTINE POLACRILEX 2 MG GUM BUC PRN (10:46)
[2022-09-19] MEDS: diazePAM 5 MG TABLET PO PRN (20:20)
[2022-09-19] MEDS: THIAMINE HCL 100 MG TABLET (FP) PO SCH (22:12)
[2022-09-19] MEDS: IBUPROFEN 600 MG TABLET (FP) PO PRN (22:14)
[2022-09-20] MEDS: diazePAM 5 MG TABLET PO SCH ×4 (05:54→22:37)
[2022-09-20] MEDS: IBUPROFEN 600 MG TABLET (FP) PO PRN (05:58)
[2022-09-20] MEDS: NICOTINE POLACRILEX 2 MG GUM BUC PRN ×5 (06:00→22:58)
[2022-09-20] MEDS: diazePAM 5 MG TABLET PO PRN (08:01)
[2022-09-20] MEDS: levETIRAcetam 500 MG TABLET (FP) PO SCH ×2 (10:21→22:37)
[2022-09-20] MEDS: SERTRALINE HCL 50 MG TABLET (FP) PO SCH (10:21)
[2022-09-20] MEDS: PRENATAL VITAMINS W/ FOLIC ACID TABLET (FP) PO SCH (10:22)
[2022-09-20] MEDS: BACITRACIN ZINC 15 GM TUBE TOPICAL OINTMENT TP SCH ×2 (10:22→22:37)
[2022-09-20 11:19] LABS: HEMATOCRIT 33.5 % (32.4-45.2); HEMOGLOBIN 11.1 GM/dL (10.7-15.3); MCH 24.8 pg (25.7-33.7); MCHC 33.1 g/dl (32.0-36.0); MEAN PLT VOLUME 8.8 fl (7.5-11.1); PLATELET COUNT 112 10^3/uL (134-434); RBC 4.46 M/mm3 (3.60-5.2); RDW 15.3 % (11.6-15.6); WHITE BLOOD COUNT 5.9 K/mm3 (4.0-10.0)
[2022-09-20 11:21] LABS: CHLORIDE 104 mmol/L (98-107); SODIUM 138 mmol/L (136-145)
[2022-09-20 11:28] LABS: BILIRUBIN,TOTAL 0.4 mg/dL (0.2-1)
[2022-09-20 11:29] LABS: CREATININE 1.1 mg/dL (0.55-1.3); SGOT/AST 17 U/L (15-37)
[2022-09-20 11:31] LABS: TOT PROT 7.8 g/dl (6.4-8.2)
[2022-09-20 11:32] LABS: ALK PHOS 68 U/L (45-117); CALCIUM 9.4 mg/dL (8.5-10.1)
[2022-09-20 11:33] LABS: ALBUMIN 3.8 g/dl (3.4-5.0); ANION GAP 5 MMOL/L (8-16); BLOOD UREA NITROGEN 23.7 mg/dL (7-18); CO2 30 mmol/L (21-32)
[2022-09-20 11:39] LABS: GLUCOSE,RANDOM 48 mg/dL (74-106); SGPT/ALT 18 U/L (13-61)
[2022-09-20] MEDS: NICOTINE 14 MG/24 HOURS TOPICAL PATCH TD SCH (12:19)
[2022-09-20] MEDS: cloNIDine HCL 0.1 MG TABLET PO PRN (14:33)
[2022-09-20] MEDS: diphenhydrAMINE HCL 25 MG CAPSULE (FP) PO PRN (18:38)
[2022-09-20] MEDS: THIAMINE HCL 100 MG TABLET (FP) PO SCH (22:37)
[2022-09-20] MEDS: METHOCARBAMOL 500 MG TABLET PO PRN (22:38)
[2022-09-20] MEDS: ACETAMINOPHEN 325 MG TABLET (FP) PO PRN (22:38)
[2022-09-20] MEDS: MELATONIN 5 MG TABLETS PO PRN (22:39)
[2022-09-21] MEDS: NICOTINE POLACRILEX 2 MG GUM BUC PRN ×5 (03:51→22:13)
[2022-09-21] MEDS: diazePAM 5 MG TABLET PO PRN ×3 (03:52→17:55)
[2022-09-21] MEDS: cloNIDine HCL 0.1 MG TABLET PO PRN ×2 (05:32→20:21)
[2022-09-21] MEDS: diazePAM 5 MG TABLET PO SCH ×3 (05:32→22:09)
[2022-09-21] MEDS: levETIRAcetam 500 MG TABLET (FP) PO SCH ×2 (10:17→22:08)
[2022-09-21] MEDS: PRENATAL VITAMINS W/ FOLIC ACID TABLET (FP) PO SCH (10:17)
[2022-09-21] MEDS: SERTRALINE HCL 50 MG TABLET (FP) PO SCH (10:18)
[2022-09-21] MEDS: NICOTINE 14 MG/24 HOURS TOPICAL PATCH TD SCH (10:18)
[2022-09-21] MEDS: BACITRACIN ZINC 15 GM TUBE TOPICAL OINTMENT TP SCH ×2 (10:18→22:08)
[2022-09-21] MEDS: diphenhydrAMINE HCL 25 MG CAPSULE (FP) PO PRN ×2 (10:21→22:44)
[2022-09-21 13:13] LABS: HIV INTERPRETATION NEGATIVE (NEGATIVE)
[2022-09-21] MEDS: ACETAMINOPHEN 325 MG TABLET (FP) PO PRN (17:42)
[2022-09-21] MEDS: THIAMINE HCL 100 MG TABLET (FP) PO SCH (22:08)
[2022-09-21] MEDS: MELATONIN 5 MG TABLETS PO PRN (22:10)
[2022-09-21] MEDS: METHOCARBAMOL 500 MG TABLET PO PRN (22:11)
[2022-09-22] MEDS: diazePAM 5 MG TABLET PO SCH ×2 (05:59→17:36)
[2022-09-22] MEDS: NICOTINE 14 MG/24 HOURS TOPICAL PATCH TD SCH (09:33)
[2022-09-22] MEDS: BACITRACIN ZINC 15 GM TUBE TOPICAL OINTMENT TP SCH ×2 (09:33→22:10)
[2022-09-22] MEDS: SERTRALINE HCL 50 MG TABLET (FP) PO SCH (09:34)
[2022-09-22] MEDS: PRENATAL VITAMINS W/ FOLIC ACID TABLET (FP) PO SCH (09:34)
[2022-09-22] MEDS: levETIRAcetam 500 MG TABLET (FP) PO SCH ×2 (09:34→22:10)
[2022-09-22] MEDS: diazePAM 5 MG TABLET PO PRN (09:35)
[2022-09-22] MEDS: NICOTINE POLACRILEX 2 MG GUM BUC PRN ×3 (09:37→21:00)
[2022-09-22] MEDS: diphenhydrAMINE HCL 25 MG CAPSULE (FP) PO PRN ×2 (12:56→22:12)
[2022-09-22] MEDS: ACETAMINOPHEN 325 MG TABLET (FP) PO PRN (17:37)
[2022-09-22] MEDS: THIAMINE HCL 100 MG TABLET (FP) PO SCH (22:10)
[2022-09-22] MEDS: cloNIDine HCL 0.1 MG TABLET PO PRN (22:11)
[2022-09-22] MEDS: METHOCARBAMOL 500 MG TABLET PO PRN (22:12)
[2022-09-23] MEDS ORDERED: diazePAM 5 MG TABLET PO ONE (06:00)
[2022-09-23 06:13] VITALS: TEMP 97.7
[2022-09-23 09:37] VITALS: BP 125/79; PULSE 60; RESP 16
[2022-09-23] MEDS: SERTRALINE HCL 50 MG TABLET (FP) PO SCH (10:11)
[2022-09-23] MEDS: levETIRAcetam 500 MG TABLET (FP) PO SCH (10:11)
[2022-09-23] MEDS: NICOTINE 14 MG/24 HOURS TOPICAL PATCH TD SCH (10:12)
[2022-09-23] MEDS: BACITRACIN ZINC 15 GM TUBE TOPICAL OINTMENT TP SCH (10:12)
[2022-09-23] MEDS: PRENATAL VITAMINS W/ FOLIC ACID TABLET (FP) PO SCH (10:12)
[2022-09-23] MEDS: NICOTINE POLACRILEX 2 MG GUM BUC PRN (10:14)
== END 2022-09-23 13:15 | disposition other institution (70) | DRG 773 ==
LOC: YASAS 19:12 → Y3N 09-19 01:41 → UNDOADMIN 09-19 01:41 → Y3N 09-20 22:39
PROVIDERS: ADMIT Allergy & Immunology; ATTEND Surgery
PROC: HZ2ZZZZ Detoxification Services for Substance Abuse Treatment (ICD-10-PCS; principal; 2022-09-19)
DX: F10.230 Alcohol dependence with withdrawal, uncomplicated (principal); F11.20 Opioid dependence, uncomplicated; F13.20 Sedative, hypnotic or anxiolytic dependence, uncomplicated; F14.20 Cocaine dependence, uncomplicated; F17.210 Nicotine dependence, cigarettes, uncomplicated; F19.282 Other psychoactive substance dependence with psychoactive substance-induced sleep disorder; F19.24 Other psychoactive substance dependence with psychoactive substance-induced mood disorder; F43.10 Post-traumatic stress disorder, unspecified; F32.9 Major depressive disorder, single episode, unspecified; E16.2 Hypoglycemia, unspecified; I10 Essential (primary) hypertension; Z88.0 Allergy status to penicillin; Z88.8 Allergy status to other drugs, medicaments and biological substances
CPT/HCPCS: 36415; 80053; 81025; 82962; 85027; 86780; 86803; 87389; 87522; C9803-CS; U0003; U0005

== ENCOUNTER 2022-09-23 13:51 | Inpatient (IN) | payer OTHER ==
[2022-09-23] MEDS ORDERED: POLYETHYLENE GLYCOL (HEALTHYLAX) 3350 17 GM PACKET PO PRN (14:19)
[2022-09-23] MEDS ORDERED: AMMONIUM LACTATE 12% LOTION 225 GM BOTTLE TP PRN (14:19)
[2022-09-23] MEDS ORDERED: COLLOIDAL OATMEAL 1 BAR EACH TP PRN (14:19)
[2022-09-23] MEDS ORDERED: LOPERAMIDE HCL 2 MG CAPSULE PO PRN (14:19)
[2022-09-23] MEDS ORDERED: MAG HYDROX/AL HYDROX/SIMETH 30 ML UNIT-DOSE CUP PO PRN (14:19)
[2022-09-23] MEDS ORDERED: BENZONATATE 200 MG CAPSULE PO PRN (14:19)
[2022-09-23] MEDS ORDERED: BENZOCAINE/MENTHOL (CHLORASEPTIC ) LOZENGE MM PRN (14:19)
[2022-09-23] MEDS ORDERED: NALOXONE HCL (KLOXXADO) 8 MG SPRAY NS PRN (14:19)
[2022-09-23] MEDS ORDERED: guaiFENesin 600 MG TABLET.ER (FP) PO PRN (14:19)
[2022-09-23] MEDS ORDERED: MAGNESIUM HYDROX 2400MG/30ML ORAL SUSPENSION 30 ML CUP PO PRN (14:19)
[2022-09-23] MEDS ORDERED: NALOXONE HCL 0.4 MG/ML VIAL IVPUSH PRN (14:19)
[2022-09-23] MEDS: PRENATAL VITAMINS W/ FOLIC ACID TABLET (FP) PO SCH (16:25)
[2022-09-23] MEDS: ALBUTEROL SO4 HFA INHALER IH SCH ×2 (16:26→22:02)
[2022-09-23] MEDS: THIAMINE HCL 100 MG TABLET (FP) PO SCH (22:00)
[2022-09-23] MEDS: MELATONIN 5 MG TABLETS PO SCH (22:00)
[2022-09-23] MEDS: hydrOXYzine PAMOATE 25 MG CAPSULE (FP) PO PRN (22:03)
[2022-09-24] MEDS: ALBUTEROL SO4 HFA INHALER IH SCH ×7 (00:02→23:47)
[2022-09-24] MEDS: ACETAMINOPHEN 325 MG TABLET (FP) PO PRN (06:17)
[2022-09-24] MEDS ORDERED: methaDONE HCL 40 MG DISPERSABLE TABLET PO SCH (07:00)
[2022-09-24] MEDS ORDERED: NICOTINE 14 MG/24 HOURS TOPICAL PATCH TD SCH (10:00)
[2022-09-24] MEDS: PRENATAL VITAMINS W/ FOLIC ACID TABLET (FP) PO SCH (10:03)
[2022-09-24] MEDS: SERTRALINE HCL 50 MG TABLET (FP) PO SCH (10:03)
[2022-09-24] MEDS ORDERED: NICOTINE POLACRILEX 2 MG GUM BUC PRN (11:45)
[2022-09-24] MEDS: NICOTINE POLACRILEX 4 MG GUM BUC PRN ×3 (13:56→21:06)
[2022-09-24] MEDS: GABAPENTIN 300 MG CAPSULE PO SCH ×2 (13:57→21:02)
[2022-09-24] MEDS: THIAMINE HCL 100 MG TABLET (FP) PO SCH (21:02)
[2022-09-24] MEDS: MELATONIN 5 MG TABLETS PO SCH (21:02)
[2022-09-24] MEDS: PRAZOSIN HCL 1 MG CAPSULE PO SCH (21:04)
[2022-09-24] MEDS: hydrOXYzine PAMOATE 25 MG CAPSULE (FP) PO PRN (21:05)
[2022-09-25] MEDS: ALBUTEROL SO4 HFA INHALER IH SCH ×6 (04:04→21:46)
[2022-09-25] MEDS: GABAPENTIN 300 MG CAPSULE PO SCH ×3 (05:42→21:06)
[2022-09-25] MEDS: NICOTINE POLACRILEX 4 MG GUM BUC PRN ×5 (05:44→21:09)
[2022-09-25] MEDS: PRENATAL VITAMINS W/ FOLIC ACID TABLET (FP) PO SCH (09:39)
[2022-09-25] MEDS: SERTRALINE HCL 50 MG TABLET (FP) PO SCH (09:39)
[2022-09-25] MEDS: hydrOXYzine PAMOATE 25 MG CAPSULE (FP) PO PRN ×2 (09:41→21:06)
[2022-09-25] MEDS: THIAMINE HCL 100 MG TABLET (FP) PO SCH (21:06)
[2022-09-25] MEDS: MELATONIN 5 MG TABLETS PO SCH (21:08)
[2022-09-25] MEDS: PRAZOSIN HCL 1 MG CAPSULE PO SCH (21:44)
[2022-09-25] MEDS: IBUPROFEN 600 MG TABLET (FP) PO PRN (21:45)
[2022-09-25] MEDS ORDERED: ALBUTEROL SO4 HFA INHALER IH PRN (22:11)
[2022-09-26] MEDS: GABAPENTIN 300 MG CAPSULE PO SCH ×3 (06:36→21:11)
[2022-09-26] MEDS: NICOTINE POLACRILEX 4 MG GUM BUC PRN ×5 (06:39→21:13)
[2022-09-26] MEDS: SERTRALINE HCL 50 MG TABLET (FP) PO SCH (10:01)
[2022-09-26] MEDS: PRENATAL VITAMINS W/ FOLIC ACID TABLET (FP) PO SCH (10:01)
[2022-09-26] MEDS: NICOTINE 14 MG/24 HOURS TOPICAL PATCH TD SCH (10:01)
[2022-09-26] MEDS: BACITRACIN 0.9 GM PACKET TP SCH ×2 (13:37→21:47)
[2022-09-26] MEDS: PRAZOSIN HCL 1 MG CAPSULE PO SCH (21:11)
[2022-09-26] MEDS: MELATONIN 5 MG TABLETS PO SCH (21:11)
[2022-09-26] MEDS: METHOCARBAMOL 500 MG TABLET PO PRN (21:11)
[2022-09-26] MEDS: THIAMINE HCL 100 MG TABLET (FP) PO SCH (21:11)
[2022-09-26] MEDS: ACETAMINOPHEN 325 MG TABLET (FP) PO PRN (21:12)
[2022-09-26] MEDS: hydrOXYzine PAMOATE 25 MG CAPSULE (FP) PO PRN (21:13)
[2022-09-27] MEDS: NICOTINE POLACRILEX 4 MG GUM BUC PRN ×6 (06:11→21:23)
[2022-09-27] MEDS: GABAPENTIN 300 MG CAPSULE PO SCH ×3 (06:11→21:21)
[2022-09-27] MEDS: NICOTINE 14 MG/24 HOURS TOPICAL PATCH TD SCH (09:38)
[2022-09-27] MEDS: BACITRACIN 0.9 GM PACKET TP SCH ×2 (09:38→21:21)
[2022-09-27] MEDS: SERTRALINE HCL 50 MG TABLET (FP) PO SCH (09:39)
[2022-09-27] MEDS: PRENATAL VITAMINS W/ FOLIC ACID TABLET (FP) PO SCH (09:39)
[2022-09-27] MEDS: METHOCARBAMOL 500 MG TABLET PO PRN ×2 (12:39→21:21)
[2022-09-27] MEDS: IBUPROFEN 600 MG TABLET (FP) PO PRN (12:39)
[2022-09-27] MEDS: hydrOXYzine PAMOATE 25 MG CAPSULE (FP) PO PRN ×2 (14:37→21:20)
[2022-09-27] MEDS: MELATONIN 5 MG TABLETS PO SCH (21:19)
[2022-09-27] MEDS: THIAMINE HCL 100 MG TABLET (FP) PO SCH (21:21)
[2022-09-27] MEDS: IBUPROFEN 400 MG TABLET (FP) PO PRN (21:21)
[2022-09-27] MEDS: PRAZOSIN HCL 1 MG CAPSULE PO SCH (21:21)
[2022-09-28] MEDS: GABAPENTIN 300 MG CAPSULE PO SCH (06:01)
[2022-09-28] MEDS ORDERED: BENZOCAINE 20 % GEL TUBE MM PRN (08:47)
[2022-09-28] MEDS: NICOTINE POLACRILEX 4 MG GUM BUC PRN ×4 (09:01→21:38)
[2022-09-28] MEDS: SERTRALINE HCL 50 MG TABLET (FP) PO SCH (09:05)
[2022-09-28] MEDS: PRENATAL VITAMINS W/ FOLIC ACID TABLET (FP) PO SCH (09:05)
[2022-09-28] MEDS: NICOTINE 14 MG/24 HOURS TOPICAL PATCH TD SCH (09:05)
[2022-09-28] MEDS: BACITRACIN 0.9 GM PACKET TP SCH ×2 (09:05→21:24)
[2022-09-28] MEDS: METHOCARBAMOL 500 MG TABLET PO PRN ×3 (09:06→21:24)
[2022-09-28] MEDS: IBUPROFEN 600 MG TABLET (FP) PO PRN ×2 (09:06→15:44)
[2022-09-28] MEDS: GABAPENTIN 400 MG CAPSULE PO SCH ×2 (13:10→21:24)
[2022-09-28] MEDS ORDERED: MELATONIN 5 MG TABLETS PO SCH (17:55)
[2022-09-28] MEDS: PRAZOSIN HCL 1 MG CAPSULE PO SCH (21:24)
[2022-09-28] MEDS: THIAMINE HCL 100 MG TABLET (FP) PO SCH (21:24)
[2022-09-28] MEDS: MELATONIN 5 MG TABLETS PO SCH (21:24)
[2022-09-29] MEDS: GABAPENTIN 400 MG CAPSULE PO SCH ×3 (06:30→21:15)
[2022-09-29] MEDS: NICOTINE POLACRILEX 4 MG GUM BUC PRN ×4 (06:34→19:48)
[2022-09-29] MEDS: SERTRALINE HCL 50 MG TABLET (FP) PO SCH (09:30)
[2022-09-29] MEDS: NICOTINE 14 MG/24 HOURS TOPICAL PATCH TD SCH (09:30)
[2022-09-29] MEDS: PRENATAL VITAMINS W/ FOLIC ACID TABLET (FP) PO SCH (09:30)
[2022-09-29] MEDS: BACITRACIN 0.9 GM PACKET TP SCH ×2 (09:31→21:14)
[2022-09-29] MEDS: METHOCARBAMOL 500 MG TABLET PO PRN (09:33)
[2022-09-29] MEDS: IBUPROFEN 600 MG TABLET (FP) PO PRN (09:33)
[2022-09-29] MEDS: THIAMINE HCL 100 MG TABLET (FP) PO SCH (21:14)
[2022-09-29] MEDS: MELATONIN 5 MG TABLETS PO SCH (21:14)
[2022-09-29] MEDS: PRAZOSIN HCL 1 MG CAPSULE PO SCH (21:14)
[2022-09-29] MEDS: IBUPROFEN 400 MG TABLET (FP) PO PRN (21:15)
[2022-09-29] MEDS: hydrOXYzine PAMOATE 25 MG CAPSULE (FP) PO PRN (21:15)
[2022-09-30] MEDS: GABAPENTIN 400 MG CAPSULE PO SCH ×3 (06:26→21:36)
[2022-09-30] MEDS: NICOTINE POLACRILEX 4 MG GUM BUC PRN ×4 (06:29→21:38)
[2022-09-30] MEDS: PRENATAL VITAMINS W/ FOLIC ACID TABLET (FP) PO SCH (10:24)
[2022-09-30] MEDS: SERTRALINE HCL 50 MG TABLET (FP) PO SCH (10:24)
[2022-09-30] MEDS: NICOTINE 14 MG/24 HOURS TOPICAL PATCH TD SCH (10:29)
[2022-09-30] MEDS: BACITRACIN 0.9 GM PACKET TP SCH ×2 (10:29→21:36)
[2022-09-30] MEDS: IBUPROFEN 600 MG TABLET (FP) PO PRN (10:30)
[2022-09-30] MEDS: hydrOXYzine PAMOATE 25 MG CAPSULE (FP) PO PRN ×2 (11:21→21:37)
[2022-09-30] MEDS: MELATONIN 5 MG TABLETS PO SCH (21:36)
[2022-09-30] MEDS: THIAMINE HCL 100 MG TABLET (FP) PO SCH (21:36)
[2022-09-30] MEDS: PRAZOSIN HCL 1 MG CAPSULE PO SCH (21:36)
[2022-10-01] MEDS: GABAPENTIN 400 MG CAPSULE PO SCH ×3 (06:29→21:45)
[2022-10-01] MEDS: NICOTINE POLACRILEX 4 MG GUM BUC PRN ×4 (06:31→21:47)
[2022-10-01] MEDS: PRENATAL VITAMINS W/ FOLIC ACID TABLET (FP) PO SCH (10:30)
[2022-10-01] MEDS: NICOTINE 10 MG CARTRIDGE (INHALER) IH PRN ×3 (10:31→21:50)
[2022-10-01] MEDS: SERTRALINE HCL 50 MG TABLET (FP) PO SCH (10:31)
[2022-10-01] MEDS: BACITRACIN 0.9 GM PACKET TP SCH ×2 (10:31→21:54)
[2022-10-01] MEDS: NICOTINE 14 MG/24 HOURS TOPICAL PATCH TD SCH (10:31)
[2022-10-01] MEDS: hydrOXYzine PAMOATE 25 MG CAPSULE (FP) PO PRN ×2 (18:05→21:46)
[2022-10-01] MEDS: THIAMINE HCL 100 MG TABLET (FP) PO SCH (21:45)
[2022-10-01] MEDS: MELATONIN 5 MG TABLETS PO SCH (21:45)
[2022-10-01] MEDS: PRAZOSIN HCL 1 MG CAPSULE PO SCH (21:45)
[2022-10-02] MEDS: GABAPENTIN 400 MG CAPSULE PO SCH ×3 (06:22→21:10)
[2022-10-02] MEDS: NICOTINE POLACRILEX 4 MG GUM BUC PRN ×4 (06:24→21:13)
[2022-10-02] MEDS: PRENATAL VITAMINS W/ FOLIC ACID TABLET (FP) PO SCH (10:12)
[2022-10-02] MEDS: NICOTINE 10 MG CARTRIDGE (INHALER) IH PRN ×3 (10:12→21:12)
[2022-10-02] MEDS: BACITRACIN 0.9 GM PACKET TP SCH ×2 (10:14→21:11)
[2022-10-02] MEDS: SERTRALINE HCL 50 MG TABLET (FP) PO SCH (10:14)
[2022-10-02] MEDS: NICOTINE 14 MG/24 HOURS TOPICAL PATCH TD SCH (10:15)
[2022-10-02] MEDS: hydrOXYzine PAMOATE 25 MG CAPSULE (FP) PO PRN (21:09)
[2022-10-02] MEDS: MELATONIN 5 MG TABLETS PO SCH (21:09)
[2022-10-02] MEDS: THIAMINE HCL 100 MG TABLET (FP) PO SCH (21:09)
[2022-10-02] MEDS: PRAZOSIN HCL 1 MG CAPSULE PO SCH (21:10)
[2022-10-03] MEDS: GABAPENTIN 400 MG CAPSULE PO SCH ×3 (06:06→21:05)
[2022-10-03] MEDS: NICOTINE 10 MG CARTRIDGE (INHALER) IH PRN ×2 (09:04→14:04)
[2022-10-03] MEDS: NICOTINE POLACRILEX 4 MG GUM BUC PRN ×3 (09:05→21:06)
[2022-10-03] MEDS: BACITRACIN 0.9 GM PACKET TP SCH ×2 (09:51→22:04)
[2022-10-03] MEDS: SERTRALINE HCL 50 MG TABLET (FP) PO SCH (09:51)
[2022-10-03] MEDS: PRENATAL VITAMINS W/ FOLIC ACID TABLET (FP) PO SCH (09:51)
[2022-10-03] MEDS: NICOTINE 14 MG/24 HOURS TOPICAL PATCH TD SCH (09:51)
[2022-10-03] MEDS: PRAZOSIN HCL 1 MG CAPSULE PO SCH (21:04)
[2022-10-03] MEDS: THIAMINE HCL 100 MG TABLET (FP) PO SCH (21:05)
[2022-10-03] MEDS: MELATONIN 5 MG TABLETS PO SCH (21:05)
[2022-10-03] MEDS: hydrOXYzine PAMOATE 25 MG CAPSULE (FP) PO PRN (21:05)
[2022-10-04] MEDS: GABAPENTIN 400 MG CAPSULE PO SCH ×3 (06:49→21:08)
[2022-10-04] MEDS: NICOTINE POLACRILEX 4 MG GUM BUC PRN ×4 (06:53→21:08)
[2022-10-04] MEDS: NICOTINE 10 MG CARTRIDGE (INHALER) IH PRN ×3 (06:53→20:27)
[2022-10-04] MEDS: SERTRALINE HCL 50 MG TABLET (FP) PO SCH (09:42)
[2022-10-04] MEDS: NICOTINE 14 MG/24 HOURS TOPICAL PATCH TD SCH (09:42)
[2022-10-04] MEDS: PRENATAL VITAMINS W/ FOLIC ACID TABLET (FP) PO SCH (09:42)
[2022-10-04] MEDS: BACITRACIN 0.9 GM PACKET TP SCH ×2 (09:42→21:47)
[2022-10-04] MEDS: hydrOXYzine PAMOATE 25 MG CAPSULE (FP) PO PRN (21:07)
[2022-10-04] MEDS: PRAZOSIN HCL 1 MG CAPSULE PO SCH (21:08)
[2022-10-04] MEDS: THIAMINE HCL 100 MG TABLET (FP) PO SCH (21:08)
[2022-10-04] MEDS: MELATONIN 5 MG TABLETS PO SCH (21:09)
[2022-10-05] MEDS: GABAPENTIN 400 MG CAPSULE PO SCH ×3 (06:34→21:26)
[2022-10-05] MEDS: BACITRACIN 0.9 GM PACKET TP SCH ×2 (09:01→21:25)
[2022-10-05] MEDS: PRENATAL VITAMINS W/ FOLIC ACID TABLET (FP) PO SCH (09:01)
[2022-10-05] MEDS: SERTRALINE HCL 50 MG TABLET (FP) PO SCH (09:01)
[2022-10-05] MEDS: NICOTINE 14 MG/24 HOURS TOPICAL PATCH TD SCH (09:02)
[2022-10-05] MEDS: NICOTINE POLACRILEX 4 MG GUM BUC PRN ×2 (09:03→14:08)
[2022-10-05] MEDS: NICOTINE 10 MG CARTRIDGE (INHALER) IH PRN (19:13)
[2022-10-05] MEDS: THIAMINE HCL 100 MG TABLET (FP) PO SCH (21:26)
[2022-10-05] MEDS: PRAZOSIN HCL 1 MG CAPSULE PO SCH (21:26)
[2022-10-05] MEDS: hydrOXYzine PAMOATE 25 MG CAPSULE (FP) PO PRN (21:26)
[2022-10-05] MEDS: MELATONIN 5 MG TABLETS PO SCH (21:26)
[2022-10-06] MEDS: GABAPENTIN 400 MG CAPSULE PO SCH ×3 (06:32→21:09)
[2022-10-06] MEDS ORDERED: HEPARIN NA (PORCINE) 5,000 UNITS/ML 1ML VIAL ONE (07:20)
[2022-10-06] MEDS ORDERED: ALBUTEROL SO4 HFA INHALER IH ONE (07:20)
[2022-10-06] MEDS: PRENATAL VITAMINS W/ FOLIC ACID TABLET (FP) PO SCH (10:06)
[2022-10-06] MEDS: SERTRALINE HCL 50 MG TABLET (FP) PO SCH (10:06)
[2022-10-06] MEDS: BACITRACIN 0.9 GM PACKET TP SCH ×2 (10:07→21:11)
[2022-10-06] MEDS: NICOTINE 14 MG/24 HOURS TOPICAL PATCH TD SCH (10:07)
[2022-10-06] MEDS: NICOTINE 10 MG CARTRIDGE (INHALER) IH PRN (10:08)
[2022-10-06] MEDS: NICOTINE POLACRILEX 4 MG GUM BUC PRN ×3 (10:10→21:11)
[2022-10-06] MEDS: hydrOXYzine PAMOATE 25 MG CAPSULE (FP) PO PRN ×2 (14:22→21:09)
[2022-10-06] MEDS: MELATONIN 5 MG TABLETS PO SCH (21:09)
[2022-10-06] MEDS: THIAMINE HCL 100 MG TABLET (FP) PO SCH (21:09)
[2022-10-06] MEDS: PRAZOSIN HCL 1 MG CAPSULE PO SCH (21:09)
[2022-10-07] MEDS: GABAPENTIN 400 MG CAPSULE PO SCH ×3 (06:15→21:17)
[2022-10-07] MEDS: NICOTINE 14 MG/24 HOURS TOPICAL PATCH TD SCH (10:03)
[2022-10-07] MEDS: PRENATAL VITAMINS W/ FOLIC ACID TABLET (FP) PO SCH (10:03)
[2022-10-07] MEDS: BACITRACIN 0.9 GM PACKET TP SCH ×2 (10:03→21:20)
[2022-10-07] MEDS: SERTRALINE HCL 50 MG TABLET (FP) PO SCH (10:04)
[2022-10-07] MEDS: NICOTINE 10 MG CARTRIDGE (INHALER) IH PRN ×2 (10:04→20:10)
[2022-10-07] MEDS: NICOTINE POLACRILEX 4 MG GUM BUC PRN ×3 (10:06→22:34)
[2022-10-07] MEDS: THIAMINE HCL 100 MG TABLET (FP) PO SCH (21:17)
[2022-10-07] MEDS: PRAZOSIN HCL 1 MG CAPSULE PO SCH (21:17)
[2022-10-07] MEDS: MELATONIN 5 MG TABLETS PO SCH (21:17)
[2022-10-07] MEDS: hydrOXYzine PAMOATE 25 MG CAPSULE (FP) PO PRN (21:18)
[2022-10-08] MEDS ORDERED: methaDONE HCL 10 MG TABLET PO SCH (06:00)
[2022-10-08] MEDS: GABAPENTIN 400 MG CAPSULE PO SCH ×3 (06:21→21:34)
[2022-10-08] MEDS: PRENATAL VITAMINS W/ FOLIC ACID TABLET (FP) PO SCH (09:55)
[2022-10-08] MEDS: BACITRACIN 0.9 GM PACKET TP SCH ×2 (09:55→21:34)
[2022-10-08] MEDS: NICOTINE 14 MG/24 HOURS TOPICAL PATCH TD SCH (09:55)
[2022-10-08] MEDS: SERTRALINE HCL 50 MG TABLET (FP) PO SCH (09:55)
[2022-10-08] MEDS: NICOTINE POLACRILEX 4 MG GUM BUC PRN ×3 (09:57→21:35)
[2022-10-08] MEDS: NICOTINE 10 MG CARTRIDGE (INHALER) IH PRN (18:54)
[2022-10-08] MEDS: hydrOXYzine PAMOATE 25 MG CAPSULE (FP) PO PRN (21:33)
[2022-10-08] MEDS: THIAMINE HCL 100 MG TABLET (FP) PO SCH (21:34)
[2022-10-08] MEDS: PRAZOSIN HCL 1 MG CAPSULE PO SCH (21:34)
[2022-10-08] MEDS: MELATONIN 5 MG TABLETS PO SCH (21:34)
[2022-10-09] MEDS: GABAPENTIN 400 MG CAPSULE PO SCH (06:17)
[2022-10-09 07:24] VITALS: BP 113/69; PULSE 90; RESP 18; TEMP 98.1
[2022-10-09] MEDS: PRENATAL VITAMINS W/ FOLIC ACID TABLET (FP) PO SCH (09:44)
[2022-10-09] MEDS: SERTRALINE HCL 50 MG TABLET (FP) PO SCH (09:44)
[2022-10-09] MEDS: BACITRACIN 0.9 GM PACKET TP SCH (09:44)
[2022-10-09] MEDS: NICOTINE POLACRILEX 4 MG GUM BUC PRN (09:47)
[2022-10-09] MEDS: NICOTINE 14 MG/24 HOURS TOPICAL PATCH TD SCH (09:55)
[2022-10-09] MEDS: NICOTINE 10 MG CARTRIDGE (INHALER) IH PRN (10:20)
== END 2022-10-09 11:00 | disposition other institution (70) | DRG 772 ==
LOC: YASAS 13:51 → Y5N 13:52
PROVIDERS: ADMIT Allergy & Immunology; ATTEND Psychiatry & Neurology Pain Medicine
PROC: HZ42ZZZ Group Counseling for Substance Abuse Treatment, Cognitive-Behavioral (ICD-10-PCS; principal; 2022-09-23)
DX: F11.20 Opioid dependence, uncomplicated (principal); F13.20 Sedative, hypnotic or anxiolytic dependence, uncomplicated; F14.20 Cocaine dependence, uncomplicated; F17.210 Nicotine dependence, cigarettes, uncomplicated; F19.282 Other psychoactive substance dependence with psychoactive substance-induced sleep disorder; F19.24 Other psychoactive substance dependence with psychoactive substance-induced mood disorder; F32.A Depression, unspecified; K08.89 Other specified disorders of teeth and supporting structures; Z88.0 Allergy status to penicillin; Z88.8 Allergy status to other drugs, medicaments and biological substances
CPT/HCPCS: J1644